=== PATIENT | male | born 1940 | race Caucasian/White ===

== ENCOUNTER → 2016-07-07 | Outpatient (CLI) | payer MEDICARE, BC | END | disposition home or self-care (01) | LOC: MW.CHFP 14:14 | PROVIDERS: ATTEND Emergency Medicine | DX: I48.91 Unspecified atrial fibrillation (principal); I25.118 Atherosclerotic heart disease of native coronary artery with other forms of angina pectoris; Z79.01 Long term (current) use of anticoagulants | CPT/HCPCS: 36415; 85610; G0463 ==

== ENCOUNTER → 2016-07-15 | Outpatient (CLI) | payer MEDICARE, BC | LOC: MW.CHFP 10:34 | PROVIDERS: ATTEND Emergency Medicine | DX: Z51.81 Encounter for therapeutic drug level monitoring (principal); Z79.01 Long term (current) use of anticoagulants | CPT/HCPCS: 36415; 85610 ==

== ENCOUNTER → 2016-07-29 | Outpatient (CLI) | payer MEDICARE, BC | LOC: MW.CHFP 08:00 | PROVIDERS: ATTEND Student in an Organized Health Care Education/Training Program | DX: Z51.81 Encounter for therapeutic drug level monitoring (principal); Z79.01 Long term (current) use of anticoagulants; I48.91 Unspecified atrial fibrillation | CPT/HCPCS: 85610; 99211 ==

== ENCOUNTER → 2016-08-12 | Outpatient (CLI) | payer MEDICARE, BC | LOC: MW.CHFP 08:00 | PROVIDERS: ATTEND Student in an Organized Health Care Education/Training Program | DX: Z51.81 Encounter for therapeutic drug level monitoring (principal); Z79.01 Long term (current) use of anticoagulants; I48.91 Unspecified atrial fibrillation | CPT/HCPCS: 85610; 99211 ==

== ENCOUNTER → 2016-09-11 | Outpatient (CLI) | payer MEDICARE, BC | LOC: MW.CHFP 08:00 | PROVIDERS: ATTEND Student in an Organized Health Care Education/Training Program | DX: Z51.81 Encounter for therapeutic drug level monitoring (principal); Z79.01 Long term (current) use of anticoagulants; I48.91 Unspecified atrial fibrillation | CPT/HCPCS: 85610; 99211 ==

== ENCOUNTER → 2016-10-09 | Outpatient (CLI) | payer MEDICARE, BC | LOC: MW.CHFP 08:00 | PROVIDERS: ATTEND Student in an Organized Health Care Education/Training Program | DX: Z51.81 Encounter for therapeutic drug level monitoring (principal); Z79.01 Long term (current) use of anticoagulants; I48.91 Unspecified atrial fibrillation | CPT/HCPCS: 85610; 99211 ==

== ENCOUNTER 2016-11-29 23:13 | Emergency (ER) | payer MEDICARE, BC ==
--- NOTE | 2016-11-29 23:38 | EDM.PDOC ---
ED HPI GENERAL MEDICAL PROBLEM - General Chief Complaint: Genitourinary Problem Stated Complaint: PT HAS BLADDER INFECTION Time Seen by Provider: 11/29/16 23:19 - History of Present Illness INITIAL COMMENTS - FREE TEXT/NARRATIVE: HISTORY AND PHYSICAL: History of present illness: The patient is a 76-year-old male with a history of diabetes hypertension CABG with maze procedure and hypercholesterolemia who was seen in the clinic 2 days ago for urinary symptoms and was diagnosed with UTI and placed on Bactrim. At that time he had a UA urine culture and CBC which I have reviewed--- the WBC count was 14.8 and the UA was positive for UTI, urine culture had greater than 100,000 Escherichia coli and is sensitive to the Bactrim . The patient presents tonight stating that he has had a total of a day and a half of the antibiotics but he still feeling urgency and having frequent urination with only small amounts avoids. He feels like his bladder is full but he has had no fevers chills flank pain chest pain shortness of breath and has been eating and drinking normally. He states that each time he feels the urge to go to the bathroom only a few drops will come out and this is been going on for the last 12+ hours. Review of systems: As per history of present illness and below otherwise all systems reviewed and negative. Past medical history: As per history of present illness and as reviewed below otherwise noncontributory. Surgical history: As per history of present illness and as reviewed below otherwise noncontributory. Social history: No reported history of drug or alcohol abuse. Family history: As per history of present illness and as reviewed below otherwise noncontributory. Physical exam: Gen.: Well-developed well-nourished man who is nontoxic and vital signs have been reviewed by me HEENT: Atraumatic, normocephalic, negative for conjunctival pallor or scleral icterus, mucous membranes moist, throat clear, neck supple, nontender, trachea midline. Lungs: Clear to auscultation, breath sounds equal bilaterally, chest nontender. Heart: S1S2, regular rate and rhythm no overt murmurs. Abdomen: Soft, nondistended, distended bladder is appreciated in the pelvic area and there is tenderness with palpation without rebound or guarding. Bowel sounds are slightly hypoactive. Negative for masses or hepatosplenomegaly. Negative for costovertebral tenderness. Pelvis: Stable nontender. Genitourinary: Deferred. Rectal: Deferred. Extremities: Atraumatic, negative for cords or calf pain. Neurovascular unremarkable. Neuro: Awake, alert, oriented. Cranial nerves II through XII unremarkable. Cerebellum unremarkable. Motor and sensory unremarkable throughout. Exam nonfocal. Diagnostics: CBC CMP bladder scan I will not repeat the UA and urine culture as I have reviewed the results from November 27, 2 days ago. Therapeutics: Chávez catheter will be placed as the bladder scan revealed 945 mL of urine Please note that his WBC count has normalized from the one done 2 days ago. I' ve informed the patient and the family. Total urine output was 800 mL. He will be given a leg bag for home and advised on follow-up. Impression: Acute urinary retention with UTI on therapy Definitive disposition and diagnosis as appropriate pending reevaluation and review of above. - Related Data Allergies Allergy/AdvReac Type Severity Reaction Status Date / Time No Known Allergies Allergy Verified 11/29/16 23:18 Home Meds: Home Meds Ascorbic Acid [Vitamin C] 500 mg PO DAILY 02/18/16 [History] Calcium Carb & Citrate/Vit D3 [Calcium + D3 ER Tablet] 600 mg PO DAILY 02/18/16 [History] Fish Oil/[place]-3 Fatty Acids [Fish Oil 1,000 MG] 1 tab PO DAILY 02/18/16 [ History] Glucosamine/D3/Boswellia Staci [Osteo Bi-Flex Caplet] 2 tab PO DAILY 02/18/16 [ History] Metoprolol Succinate 25 mg PO DAILY 02/18/16 [History] Multivitamin [Multivitamins] 1 tab PO DAILY 02/18/16 [History] Simvastatin [Zocor] 20 mg PO BEDTIME 02/18/16 [History] metFORMIN HCl [Metformin HCl ER] 500 mg PO DAILY 02/18/16 [History] Amiodarone HCl [Pacerone] 400 mg PO DAILY 11/30/16 [History] Aspirin 81 mg PO DAILY 11/30/16 [History] Furosemide 40 mg PO DAILY 11/30/16 [History] Melatonin 3 mg PO BEDTIME 11/30/16 [History] Potassium Chloride 20 meq PO 11/30/16 [History] Umeclidinium Brm/Vilanterol Tr [Anoro Ellipta 62.5-25 Mcg INH] 1 each IH ASDIRECTED 11/30/16 [History] Past Medical History HEENT History: Reports: Other (See Below) Other HEENT History: top and bottom dentures Cardiovascular History: Reports: Afib Respiratory History: Reports: None Other Gastrointestinal History: hemoccult pos- stool, Genitourinary History: Reports: None Other Genitourinary History: prostatitis, elevated PSA Musculoskeletal History: Reports: Fracture Other Musculoskeletal History: hx fx wrist Neurological History: Reports: None Psychiatric History: Reports: None Endocrine/Metabolic History: Reports: Diabetes, Type II Other Endocrine/Metabolic History: Pt states "pre diabetic" Hematologic History: Reports: Anemia, Blood Transfusion(s) Other Hematologic History: blood transfusion 3 weeks ago Immunologic History: Reports: None Oncologic (Cancer) History: Reports: None Dermatologic History: Reports: None - Past Surgical History Head Surgeries/Procedures: Reports: None HEENT Surgical History: Reports: Tonsillectomy Cardiovascular Surgical History: Reports: None Respiratory Surgical History: Reports: None GI Surgical History: Reports: Appendectomy Male Surgical History: Reports: None Endocrine Surgical History: Reports: None Neurological Surgical History: Reports: None Musculoskeletal Surgical History: Reports: None Oncologic Surgical History: Reports: None Social & Family History - Tobacco Use Smoking Status *Q: Former Smoker - Recreational Drug Use Recreational Drug Use: No Drug Use in Last 12 Months: No ED ROS GENERAL - Review of Systems Review Of Systems: ROS reveals no pertinent complaints other than HPI. ED EXAM, GENERAL - Physical Exam Exam: See Below (See dictation) Course - Vital Signs Last Recorded V/S: Last Vital Signs Temp 36.3 C 11/29/16 23:19 Pulse 70 11/30/16 00:24 Resp 21 H 11/30/16 00:24 BP 112/69 11/30/16 00:24 Pulse Ox 95 11/30/16 00:24 - Orders/Labs/Meds Orders: Active Orders 24 hr Category Date Time Status Insert Chávez Catheter [Insert Urinary Catheter] [OM.PC] Care 11/29/16 23:45 Ordered Q24H Urinary Catheter Assessment [RC] ASDIRECTED Care 11/29/16 23:45 Active Labs: Laboratory Tests 11/30/16 11/30/16 Range/Units 00:02 00:02 WBC 8.08 (4.0-11.0) K/uL RBC 3.77 L (4.50-5.90) M/uL Hgb 11.8 L (13.0-17.0) g/dL Hct 35.3 L (38.0-50.0) % MCV 93.6 (80.0-98.0) fL MCH 31.3 (27.0-32.0) pg MCHC 33.4 (31.0-37.0) g/dL RDW Std Deviation 53.9 (28.0-62.0) fl RDW Coeff of Gricelda 16 H (11.0-15.0) % Plt Count 149 L (150-400) K/uL MPV 10.00 (7.40-12.00) fL Neut % (Auto) 79.1 (48.0-80.0) % Lymph % (Auto) 7.7 L (16.0-40.0) % [place]ward % (Auto) 12.0 (0.0-15.0) % Eos % (Auto) 1.1 (0.0-7.0) % Baso % (Auto) 0.1 (0.0-1.5) % Neut # (Auto) 6.4 H (1.4-5.7) K/uL Lymph # (Auto) 0.6 (0.6-2.4) K/uL Woodward # (Auto) 1.0 H (0.0-0.8) K/uL Eos # (Auto) 0.1 (0.0-0.7) K/uL Baso # (Auto) 0.0 (0.0-0.1) K/uL Nucleated RBC % 0.0 /100WBC Nucleated RBCs # 0 K/uL Sodium 133 L (136-146) mmol/L Potassium 5.0 (3.5-5.1) mmol/L Chloride 103 (98-110) mmol/L Carbon Dioxide 23 (21-31) mmol/L BUN 23 (6.0-23.0) mg/dL Creatinine 1.3 (0.6-1.5) mg/dL Est Cr Clr Drug Dosing 55.49 mL/min Estimated GFR (MDRD) 53.8 ml/min Glucose 142 H (60-110) mg/dL Calcium 8.7 L (8.8-10.8) mg/dL Total Bilirubin 0.5 (0.1-1.5) mg/dL AST 59 H (5-40) IU/L ALT 41 (8-54) IU/L Alkaline Phosphatase 85 (40-150) Total Protein 7.4 (6.0-8.0) g/dL Albumin 3.4 (3.4-4.8) g/dL Globulin 4.0 H (2.0-3.5) g/dL Albumin/Globulin Ratio 0.9 L (1.3-2.8) Departure - Departure Time of Disposition: 00:46 Disposition: Home, Self-Care 01 Condition: Good Clinical Impression: Retention of urine, UTI, Urinary tract infectious disease - Discharge Information Referrals: PCP,None [Primary Care Provider] - Forms: ED Department Discharge Additional Instructions: The following information is given to patients seen in the emergency department who are being discharged to home. This information is to outline your options for follow-up care. We provide all patients seen in our emergency department with a follow-up referral. The need for follow-up, as well as the timing and circumstances, are variable depending upon the specifics of your emergency department visit. If you don't have a primary care physician on staff, we will provide you with a referral. We always advise you to contact your personal physician following an emergency department visit to inform them of the circumstance of the visit and for follow-up with them and/or the need for any referrals to a consulting specialist. The emergency department will also refer you to a specialist when appropriate. This referral assures that you have the opportunity for followup care with a specialist. All of these measure are taken in an effort to provide you with optimal care, which includes your followup. Under all circumstances we always encourage you to contact your private physician who remains a resource for coordinating your care. When calling for followup care, please make the office aware that this follow-up is from your recent emergency room visit. If for any reason you are refused follow-up, please contact the [facility] emergency department at and ask to speak to the emergency department charge nurse. [facility] Primary care- Internal Medicine and Family [facility] [id number] [facility] [address] [place] [id number] Please continue with your hydration and continue to take the antibiotics --- Bactrim ---that you're currently on until they are finished. Please call and follow-up with your provider in the clinic or our urologist in the next several days and return to ER as needed and as discussed. Your primary care physician can remove the Chávez catheter in the clinic in the next 3-5 days. Please drain the leg bag as shown. - My Orders Last 24 Hours: My Active Orders 11/29/16 23:45 Insert Chávez Catheter [Insert Urinary Catheter] [OM.PC] Q24H Urinary Catheter Assessment [RC] ASDIRECTED - Assessment/Plan Last 24 Hours: My Active Orders 11/29/16 23:45 Insert Chávez Catheter [Insert Urinary Catheter] [OM.PC] Q24H Urinary Catheter Assessment [RC] ASDIRECTED
[2016-11-30 01:03] VITALS: BP 105/61
== END 2016-11-30 01:11 | disposition home or self-care (01) ==
LOC: MW.ED 23:13
DX: N39.0 Urinary tract infection, site not specified (principal); R33.9 Retention of urine, unspecified; E11.9 Type 2 diabetes mellitus without complications; E78.00 Pure hypercholesterolemia, unspecified; I48.91 Unspecified atrial fibrillation; I10 Essential (primary) hypertension; Z79.84 Long term (current) use of oral hypoglycemic drugs; Z79.82 Long term (current) use of aspirin; Z79.899 Other long term (current) drug therapy; Z98.890 Other specified postprocedural states; Z90.49 Acquired absence of other specified parts of digestive tract; Z87.891 Personal history of nicotine dependence; Z86.2 Personal history of diseases of the blood and blood-forming organs and certain disorders involving the immune mechanism
CPT/HCPCS: 51702; 80053; 85025; 99283

== ENCOUNTER 2016-12-02 18:42 | Emergency (ER) | payer MEDICARE, BC ==
--- NOTE | 2016-12-02 19:53 | EDM.PDOC ---
ED HPI GENERAL MEDICAL PROBLEM - General Chief Complaint: Genitourinary Problem Stated Complaint: BLEEDING/CATHETER Time Seen by Provider: 12/02/16 18:59 Source of Information: Reports: Patient History Limitations: Reports: No Limitations - History of Present Illness INITIAL COMMENTS - FREE TEXT/NARRATIVE: Presents reporting that this afternoon he noticed some blood in his urinary catheter and pink to tea-colored urine in his leg bag. He denies inadvertently pulling on the catheter. The patient states that a few days ago he had the catheter placed because he had a urinary tract infection and then could not void. He has been on his antibiotics since and has not had any fever or other symptoms. He hasn't appointment tomorrow with his primary care provider to reevaluate his bladder function and infection. - Related Data Allergies Allergy/AdvReac Type Severity Reaction Status Date / Time No Known Allergies Allergy Verified 12/02/16 18:58 Home Meds: Home Meds Ascorbic Acid [Vitamin C] 500 mg PO DAILY 02/18/16 [History] Calcium Carb & Citrate/Vit D3 [Calcium + D3 ER Tablet] 600 mg PO DAILY 02/18/16 [History] Fish Oil/[place]-3 Fatty Acids [Fish Oil 1,000 MG] 1 tab PO DAILY 02/18/16 [ History] Glucosamine/D3/Boswellia Staci [Osteo Bi-Flex Caplet] 2 tab PO DAILY 02/18/16 [ History] Metoprolol Succinate 25 mg PO DAILY 02/18/16 [History] Multivitamin [Multivitamins] 1 tab PO DAILY 02/18/16 [History] Simvastatin [Zocor] 20 mg PO BEDTIME 02/18/16 [History] metFORMIN HCl [Metformin HCl ER] 500 mg PO DAILY 02/18/16 [History] Amiodarone HCl [Pacerone] 400 mg PO DAILY 11/30/16 [History] Aspirin 81 mg PO DAILY 11/30/16 [History] Furosemide 40 mg PO DAILY 11/30/16 [History] Melatonin 3 mg PO BEDTIME 11/30/16 [History] Potassium Chloride 20 meq PO 11/30/16 [History] Umeclidinium Brm/Vilanterol Tr [Anoro Ellipta 62.5-25 Mcg INH] 1 each IH ASDIRECTED 11/30/16 [History] Past Medical History - Past Health History Medical/Surgical History: Denies Medical/Surgical History HEENT History: Reports: Other (See Below) Other HEENT History: top and bottom dentures Cardiovascular History: Reports: Afib, High Cholesterol, Hypertension Other Cardiovascular History: heart surgery Respiratory History: Reports: None Other Gastrointestinal History: hemoccult pos- stool, Genitourinary History: Reports: None Other Genitourinary History: prostatitis, elevated PSA Musculoskeletal History: Reports: Fracture Other Musculoskeletal History: hx fx wrist Neurological History: Reports: None Psychiatric History: Reports: None Endocrine/Metabolic History: Reports: Diabetes, Type II Other Endocrine/Metabolic History: Pt states "pre diabetic" Hematologic History: Reports: Anemia, Blood Transfusion(s) Other Hematologic History: blood transfusion 3 weeks ago Immunologic History: Reports: None Oncologic (Cancer) History: Reports: None Dermatologic History: Reports: None - Infectious Disease History Infectious Disease History: Reports: None - Past Surgical History Head Surgeries/Procedures: Reports: None HEENT Surgical History: Reports: Tonsillectomy Cardiovascular Surgical History: Reports: None, Coronary Artery Bypass Respiratory Surgical History: Reports: None GI Surgical History: Reports: Appendectomy Male Surgical History: Reports: None Endocrine Surgical History: Reports: None Neurological Surgical History: Reports: None Musculoskeletal Surgical History: Reports: None Oncologic Surgical History: Reports: None Social & Family History - Family History Family Medical History: Noncontributory - Tobacco Use Smoking Status *Q: Never Smoker - Recreational Drug Use Recreational Drug Use: No Drug Use in Last 12 Months: No ED ROS GENERAL - Review of Systems Review Of Systems: ROS reveals no pertinent complaints other than HPI. ED EXAM, RENAL/ - Physical Exam Exam: See Below Exam Limited By: No Limitations General Appearance: Alert, No Apparent Distress Ears: Normal External Exam Nose: Normal Inspection Throat/Mouth: Normal Inspection Head: Atraumatic, Normocephalic Neck: Normal Inspection Respiratory/Chest: No Respiratory Distress, Lungs Clear, Normal Breath Sounds Cardiovascular: Normal Peripheral Pulses, Regular Rate, Rhythm, No Murmur GI/Abdominal: Soft (Male) Exam: Other (Urine draining into leg bag. Urine is clear dark pink with a few small clots.) Extremities: Normal Inspection Neurological: Alert, Oriented, Normal Cognition Psychiatric: Normal Affect Skin Exam: Warm, Dry, Intact, Normal Color, No Rash Lymphatic: No Adenopathy Course - Vital Signs Last Recorded V/S: Last Vital Signs Temp 36.6 C 12/02/16 18:59 Pulse 77 12/02/16 18:59 Resp 16 12/02/16 18:59 BP 162/79 H 12/02/16 18:59 Pulse Ox 97 12/02/16 18:59 - Re-Assessments/Exams Free Text/Narrative Re-Assessment/Exam: 12/02/16 19:53 His urinary catheter was flushed with saline. It flushed easily and all small clots were cleared and now draining pink tinged urine. Departure - Departure Time of Disposition: 19:54 Disposition: Home, Self-Care 01 Condition: Good Clinical Impression: Hematuria Qualifiers: Hematuria type: unspecified type Qualified Code(s): R31.9 - Hematuria, unspecified - Discharge Information Referrals: PCP,None [Primary Care Provider] - Angie Jones MD [Physician] - Forms: ED Department Discharge Additional Instructions: 1. Follow-up with your primary Provider tomorrow as previously scheduled 2. Do not take your aspirin tomorrow morning and ask your primary provider about continuing to take it 3. If you feel bladder fullness and there is no urine flowing into your leg bag , return to the ER for irrigation.
== END 2016-12-02 20:09 | disposition home or self-care (01) ==
LOC: MW.ED 18:42
CPT/HCPCS: 99283

== ENCOUNTER 2018-08-21 21:19 | Observation (INO) | payer MEDICARE, BC ==
[2018-08-21] MEDS ORDERED: Sodium Chloride 0.9% 10 ML Syringe FLUSH PRN (21:36)
[2018-08-21] MEDS ORDERED: Ondansetron 4 MG/2 ML SDV IVPUSH ONE (21:36)
[2018-08-21] MEDS ORDERED: Pantoprazole 40 MG Vial IVPUSH ONE (21:36)
[2018-08-21] MEDS ORDERED: Sodium Chloride 0.9% 1,000 ML IV ONE (21:36)
[2018-08-21] MEDS ORDERED: Sodium Chloride 0.9% 2.5 ML Syringe FLUSH PRN (21:36)
[2018-08-21] MEDS ORDERED: Morphine 2 MG/ML Syringe IVPUSH ONE (21:36)
--- NOTE | 2018-08-21 21:40 | EDM.PDOC ---
ED HPI GENERAL MEDICAL PROBLEM - General Chief Complaint: Abdominal Pain Stated Complaint: PT HAS FLU SYMPTOMS Time Seen by Provider: 08/21/18 21:26 - History of Present Illness INITIAL COMMENTS - FREE TEXT/NARRATIVE: HISTORY AND PHYSICAL: History of present illness: The patient is a 78-year-old male with history of hypertension non-insulin- dependent diabetes hypercholesterolemia who follows in our family practice clinic with Dr. Castro and presents with 5 days of upper abdominal pain with bloated feeling as well as nausea. He has only had one episode of vomiting and he says he's been having bowel movements but they're not as healthy as usual and today he only had a small one. His bowel movements and diarrhea and they're not black or bloody. The patient has a history of a CABG as well as an appendectomy but no other abdominal surgical history or GI history. He says he had an endoscopy and colonoscopy a few years ago which was normal. He has not been eating and drinking as much as usual but he has had normal urine output and no pain or hematuria with urination. He has no flank pain no chest pain no shortness of breath no fevers or chills and no upper respiratory symptoms with this abdominal problem. He says that he just feels a lot of pressure in his abdomen and does not describe the pain as sharp or crampy and not burning. He says is mostly in his upper abdomen but does not localize right or left and he has less discomfort in the lower abdominal area Review of systems: As per history of present illness and below otherwise all systems reviewed and negative. Past medical history: As per history of present illness and as reviewed below otherwise noncontributory. Surgical history: As per history of present illness and as reviewed below otherwise noncontributory. Social history: No reported history of drug or alcohol abuse. Family history: As per history of present illness and as reviewed below otherwise noncontributory. Physical exam: General: Well-developed well-nourished man who is nontoxic and vital signs are noted by me HEENT: Atraumatic, normocephalic, negative for conjunctival pallor or scleral icterus, mucous membranes moist, throat clear, neck supple, nontender, trachea midline. Lungs: Clear to auscultation, breath sounds equal bilaterally, chest nontender. Heart: S1S2, regular rate and rhythm no overt murmurs Abdomen: Soft, hyperactive bowel sounds and there is visible distention with diffuse tympany on percussion of the upper abdomen. There is minimal tenderness to deep palpation throughout the abdomen but the patient complains of feeling pressure when I perform this exam. There is no rebound or guarding. Negative for masses or hepatosplenomegaly. Negative for costovertebral tenderness. Pelvis: Stable nontender. Genitourinary: Deferred. Rectal: Deferred. Extremities: Atraumatic, negative for cords or calf pain. Neurovascular unremarkable. Neuro: Awake, alert, oriented. Cranial nerves II through XII unremarkable. Cerebellum unremarkable. Motor and sensory unremarkable throughout. Exam nonfocal. Diagnostics: EKG CBC CMP amylase lipase lactic acid UA with reflex H pylori CT scan of the abdomen and pelvis Therapeutics: IV monitor IV fluids Protonix Zofran and morphine Repeat blood pressure is 151/77 without any specific blood pressure intervention. We will continue to monitor Patient is resting comfortably in the ED and is not having any significant pain nausea or vomiting. He and are aware of CT scan results and need for admission to the hospital. They are agreeable. [id number]: Dr. Rowe is aware of this case and will see the patient in the morning for formal consultation 0000: Case was discussed with Dr. Ocampo who agrees with admission Impression: Small bowel obstruction Definitive disposition and diagnosis as appropriate pending reevaluation and review of above. upper abdomen Pain Score (Numeric/FACES): 8 - Related Data Allergies Allergy/AdvReac Type Severity Reaction Status Date / Time No Known Allergies Allergy Verified 08/21/18 21:32 Home Meds: Home Meds Ascorbic Acid [Vitamin C] 500 mg PO DAILY 02/18/16 [History] Calcium Carb & Citrate/Vit D3 [Calcium + D3 ER Tablet] 600 mg PO DAILY 02/18/16 [History] Fish Oil/[place]-3 Fatty Acids [Fish Oil 1,000 MG] 1 tab PO DAILY 02/18/16 [ History] Glucosamine/D3/Boswellia Staci [Osteo Bi-Flex Caplet] 1 tab PO DAILY 02/18/16 [ History] Multivitamin [Multivitamins] 1 tab PO DAILY 02/18/16 [History] Simvastatin [Zocor] 20 mg PO BEDTIME 02/18/16 [History] metFORMIN HCl [Metformin HCl ER] 1,000 mg PO DAILY 02/18/16 [History] Aspirin 81 mg PO DAILY 11/30/16 [History] Melatonin 10 mg PO BEDTIME 11/30/16 [History] Losartan [Cozaar] 1 tab PO DAILY 08/21/18 [History] Sertraline [Zoloft] 1 tab PO DAILY 08/21/18 [History] Past Medical History - Past Health History Medical/Surgical History: Denies Medical/Surgical History HEENT History: Reports: Other (See Below) Other HEENT History: top and bottom dentures Cardiovascular History: Reports: Afib, High Cholesterol, Hypertension Other Cardiovascular History: heart surgery Respiratory History: Reports: None Other Gastrointestinal History: hemoccult pos- stool, Genitourinary History: Reports: None Other Genitourinary History: prostatitis, elevated PSA Musculoskeletal History: Reports: Fracture Other Musculoskeletal History: hx fx wrist Neurological History: Reports: None Psychiatric History: Reports: None Endocrine/Metabolic History: Reports: Diabetes, Type II Other Endocrine/Metabolic History: Pt states "pre diabetic" Hematologic History: Reports: Anemia, Blood Transfusion(s) Other Hematologic History: blood transfusion 3 weeks ago Immunologic History: Reports: None Oncologic (Cancer) History: Reports: None Dermatologic History: Reports: None - Infectious Disease History Infectious Disease History: Reports: None - Past Surgical History Head Surgeries/Procedures: Reports: None HEENT Surgical History: Reports: Tonsillectomy Cardiovascular Surgical History: Reports: None, Coronary Artery Bypass Respiratory Surgical History: Reports: None GI Surgical History: Reports: Appendectomy Male Surgical History: Reports: None Endocrine Surgical History: Reports: None Neurological Surgical History: Reports: None Musculoskeletal Surgical History: Reports: None Oncologic Surgical History: Reports: None Social & Family History - Family History Family Medical History: Noncontributory ED ROS GENERAL - Review of Systems Review Of Systems: ROS reveals no pertinent complaints other than HPI. ED EXAM, GENERAL - Physical Exam Exam: See Below (See dictation) Course - Vital Signs Last Recorded V/S: Last Vital Signs Temp 36.8 C 08/21/18 23:29 Pulse 78 08/21/18 23:29 Resp 14 08/21/18 23:29 BP 137/76 08/21/18 23:29 Pulse Ox 92 L 08/21/18 23:29 - Orders/Labs/Meds Orders: Active Orders 24 hr Category Date Time Status Cardiac Monitoring [RC] . DIRECTED Care 08/21/18 21:35 Active EKG Documentation Completion [RC] STAT Care 08/21/18 21:35 Active Notify Provider Consults [RC] ASDIRECTED Care 08/21/18 23:53 Active Oxygen Therapy, ED [RC] ASDIRECTED Care 08/21/18 21:35 Active Pulse Oximetry [RC] ASDIRECTED Care 08/21/18 21:35 Active Consult to Physician [CONS] Stat Cons 08/21/18 23:53 Active Lactated Ringers [Ringers, Lactated] 1,000 ml Med 08/21/18 23:45 Active IV ASDIRECTED Sodium Chloride 0.9% [Saline Flush] Med 08/21/18 21:36 Active 10 ml FLUSH ASDIRECTED PRN Sodium Chloride 0.9% [Saline Flush] Med 08/21/18 21:36 Active 2.5 ml FLUSH ASDIRECTED PRN Saline Lock Insert [OM.PC] Stat Oth 08/21/18 21:35 Ordered Medication Orders Lactated Ringer's (Ringers, Lactated) 1,000 mls @ 125 mls/hr IV ASDIRECTED YOHAN Sodium Chloride (Saline Flush) 10 ml FLUSH ASDIRECTED PRN PRN Reason: Keep Vein Open Last Admin: 08/21/18 21:58 Dose: 10 ml Sodium Chloride (Saline Flush) 2.5 ml FLUSH ASDIRECTED PRN PRN Reason: Keep Vein Open Last Admin: 08/21/18 21:58 Dose: 2.5 ml Labs: Laboratory Tests 08/21/18 08/21/18 08/21/18 Range/Units 21:44 21:53 21:53 WBC 5.35 (4.0-11.0) K/uL RBC 4.34 L (4.50-5.90) M/uL Hgb 14.7 (13.0-17.0) g/dL Hct 41.5 (38.0-50.0) % MCV 95.6 (80.0-98.0) fL MCH 33.9 H (27.0-32.0) pg MCHC 35.4 (31.0-37.0) g/dL RDW Std Deviation 44.8 (28.0-62.0) fl RDW Coeff of [place]ricelda 13 (11.0-15.0) % Plt Count 147 L (150-400) K/uL MPV 9.40 (7.40-12.00) fL Neut % (Auto) 71.5 (48.0-80.0) % Lymph % (Auto) 17.2 (16.0-40.0) % [place] % (Auto) 9.5 (0.0-15.0) % Eos % (Auto) 0.7 (0.0-7.0) % Baso % (Auto) 1.1 (0.0-1.5) % Neut # (Auto) 3.8 (1.4-5.7) K/uL Lymph # (Auto) 0.9 (0.6-2.4) K/uL [place] # (Auto) 0.5 (0.0-0.8) K/uL Eos # (Auto) 0.0 (0.0-0.7) K/uL Baso # (Auto) 0.1 (0.0-0.1) K/uL Nucleated RBC % 0.0 /100WBC Nucleated RBCs # 0 K/uL Lactate 1.1 (0.20-2.00) mmol/L Sodium (136-148) mmol/L Potassium (3.5-5.1) mmol/L Chloride (98-107) mmol/L Carbon Dioxide (21.0-32.0) mmol/L BUN (7.0-18.0) mg/dL Creatinine (0.8-1.3) mg/dL Est Cr Clr Drug Dosing Estimated GFR (MDRD) ml/min Glucose (74-106) mg/dL Calcium (8.5-10.1) mg/dL Total Bilirubin (0.2-1.0) mg/dL AST (15-37) IU/L ALT (14-63) IU/L Alkaline Phosphatase (46-116) U/L Total Protein (6.4-8.2) g/dL Albumin (3.4-5.0) g/dL Globulin (2.6-4.0) g/dL Albumin/Globulin Ratio (0.9-1.6) Amylase (25-115) U/L Lipase (73-393) U/L Urine Color YELLOW Urine Appearance SLT CLOUDY Urine pH 6.5 (5.0-8.0) Ur Specific [place] 1.015 (1.001-1.035) Urine Protein NEGATIVE (NEGATIVE) mg/dL Urine Glucose (UA) NEGATIVE (NEGATIVE) mg/dL Urine Ketones TRACE H (NEGATIVE) mg/dL Urine Occult Blood NEGATIVE (NEGATIVE) Urine Nitrite NEGATIVE (NEGATIVE) Urine Bilirubin NEGATIVE (NEGATIVE) Urine Urobilinogen 0.2 (<2.0) EU/dL Ur Leukocyte Esterase NEGATIVE (NEGATIVE) H. pylori IgG Antibody (NEG) 08/21/18 08/21/18 Range/Units 21:53 21:53 WBC (4.0-11.0) K/uL RBC (4.50-5.90) M/uL Hgb (13.0-17.0) g/dL Hct (38.0-50.0) % MCV (80.0-98.0) fL MCH (27.0-32.0) pg MCHC (31.0-37.0) g/dL RDW Std Deviation (28.0-62.0) fl RDW Coeff of [place] (11.0-15.0) % Plt Count (150-400) K/uL MPV (7.40-12.00) fL Neut % (Auto) (48.0-80.0) % Lymph % (Auto) (16.0-40.0) % [place] % (Auto) (0.0-15.0) % Eos % (Auto) (0.0-7.0) % Baso % (Auto) (0.0-1.5) % Neut # (Auto) (1.4-5.7) K/uL Lymph # (Auto) (0.6-2.4) K/uL [place] # (Auto) (0.0-0.8) K/uL Eos # (Auto) (0.0-0.7) K/uL Baso # (Auto) (0.0-0.1) K/uL Nucleated RBC % /100WBC Nucleated RBCs # K/uL Lactate (0.20-2.00) mmol/L Sodium 139 (136-148) mmol/L Potassium 3.8 (3.5-5.1) mmol/L Chloride 101 (98-107) mmol/L Carbon Dioxide 28.7 (21.0-32.0) mmol/L BUN 20 H (7.0-18.0) mg/dL Creatinine 1.1 (0.8-1.3) mg/dL Est Cr Clr Drug Dosing TNP Estimated GFR (MDRD) > 60.0 ml/min Glucose 186 H (74-106) mg/dL Calcium 9.1 (8.5-10.1) mg/dL Total Bilirubin 0.5 (0.2-1.0) mg/dL AST 20 (15-37) IU/L ALT 25 (14-63) IU/L Alkaline Phosphatase 55 (46-116) U/L Total Protein 6.9 (6.4-8.2) g/dL Albumin 3.4 (3.4-5.0) g/dL Globulin 3.5 (2.6-4.0) g/dL Albumin/Globulin Ratio 1.0 (0.9-1.6) Amylase 47 (25-115) U/L Lipase 93 (73-393) U/L Urine Color Urine Appearance Urine pH (5.0-8.0) Ur Specific [place] (1.001-1.035) Urine Protein (NEGATIVE) mg/dL Urine Glucose (UA) (NEGATIVE) mg/dL Urine Ketones (NEGATIVE) mg/dL Urine Occult Blood (NEGATIVE) Urine Nitrite (NEGATIVE) Urine Bilirubin (NEGATIVE) Urine Urobilinogen (<2.0) EU/dL Ur Leukocyte Esterase (NEGATIVE) H. pylori IgG Antibody NEGATIVE (NEG) Meds: Medications Generic Name Dose Route Start Last Admin Trade Name Freq PRN Reason Stop Dose Admin Lactated Ringer's 1,000 mls @ 125 mls/hr 08/21/18 23:45 Ringers, Lactated IV ASDIRECTED YOHAN Sodium Chloride 10 ml 08/21/18 21:36 08/21/18 21:58 Saline Flush FLUSH 10 ml ASDIRECTED PRN Administration Keep Vein Open Sodium Chloride 2.5 ml 08/21/18 21:36 08/21/18 21:58 Saline Flush FLUSH 2.5 ml ASDIRECTED PRN Administration Keep Vein Open Discontinued Medications Generic Name Dose Route Start Last Admin Trade Name Freq PRN Reason Stop Dose Admin Sodium Chloride 1,000 mls @ 999 mls/hr 08/21/18 21:36 08/21/18 21:50 Normal Saline IV 08/21/18 22:36 999 mls/hr STAT ONE Administration Sodium Chloride Confirm 08/21/18 21:41 04/06/19 21:55 Normal Saline Administered 08/21/18 21:42 20 mls/hr Dose Administration 20 mls @ as directed .ROUTE .STK-MED ONE Iopamidol 100 ml 08/21/18 22:33 08/21/18 22:39 Isovue-370 (76%) IVPUSH 08/21/18 22:34 100 ml ONETIME ONE Administration Morphine Sulfate 2 mg 08/21/18 21:36 08/21/18 21:57 Morphine IVPUSH 08/21/18 21:37 2 mg ONETIME ONE Administration Ondansetron HCl 4 mg 08/21/18 21:36 08/21/18 21:56 Zofran IVPUSH 08/21/18 21:37 4 mg ONETIME ONE Administration Pantoprazole Sodium 80 mg 08/21/18 21:36 08/21/18 21:55 Protonix Iv IVPUSH 08/21/18 21:37 80 mg .BOLUS ONE Administration Departure - Departure Time of Disposition: 23:58 Disposition: Refer to Observation Condition: Good Clinical Impression: Small bowel obstruction - Discharge Information Referrals: PCP,None [Primary Care Provider] - Forms: ED Department Discharge - My Orders Last 24 Hours: My Active Orders 08/21/18 21:35 Cardiac Monitoring [RC] . DIRECTED EKG Documentation Completion [RC] STAT Oxygen Therapy, ED [RC] ASDIRECTED Pulse Oximetry [RC] ASDIRECTED Saline Lock Insert [OM.PC] Stat 08/21/18 21:36 Sodium Chloride 0.9% [Saline Flush] 10 ml FLUSH ASDIRECTED PRN Sodium Chloride 0.9% [Saline Flush] 2.5 ml FLUSH ASDIRECTED PRN 08/21/18 23:45 Lactated Ringers [Ringers, Lactated] 1,000 ml IV ASDIRECTED 08/21/18 23:53 Notify Provider Consults [RC] ASDIRECTED Consult to Physician [CONS] Stat - Assessment/Plan Last 24 Hours: My Active Orders 08/21/18 21:35 Cardiac Monitoring [RC] . DIRECTED EKG Documentation Completion [RC] STAT Oxygen Therapy, ED [RC] ASDIRECTED Pulse Oximetry [RC] ASDIRECTED Saline Lock Insert [OM.PC] Stat 08/21/18 21:36 Sodium Chloride 0.9% [Saline Flush] 10 ml FLUSH ASDIRECTED PRN Sodium Chloride 0.9% [Saline Flush] 2.5 ml FLUSH ASDIRECTED PRN 08/21/18 23:45 Lactated Ringers [Ringers, Lactated] 1,000 ml IV ASDIRECTED 08/21/18 23:53 Notify Provider Consults [RC] ASDIRECTED Consult to Physician [CONS] Stat
[2018-08-21] MEDS ORDERED: Sodium Chloride 0.9% 20 ML ONE (21:41)
[2018-08-21 22:20] LABS: CHLORIDE,CL 101 mmol/L (98-107); SODIUM,NA 139 mmol/L (136-148)
[2018-08-21] MEDS ORDERED: Iopamidol 755 Mg/ML 100 ML Bottle IVPUSH ONE (22:33)
--- NOTE | 2018-08-21 23:30 | CT ---
HISTORY: Abdominal pain. TECHNIQUE: CT abdomen and pelvis with IV contrast. COMPARISON: None. FINDINGS: Abdomen: No liver lesions. Cholelithiasis. No bile duct dilation. No pancreatic mass or pancreatic duct dilation. No spleen lesions. Spleen is normal size. No adrenal nodules. Kidneys enhance symmetrically. No renal mass. No hydronephrosis. Multiple dilated loops of small bowel with decompressed ileum. Small bowel is dilated up to 5 cm. Duodenum and proximal jejunum are not dilated. Some peripheral gas within the jejunum without definite pneumatosis. No mesenteric venous or portal venous gas. No free intraperitoneal gas. Colon is not dilated. Colonic diverticulosis. Small amount of free fluid in the abdomen. No lymphadenopathy. Moderate atherosclerosis. No abdominal aortic aneurysm. Pelvis: Large right inguinal hernia contains fat and fluid. Small portion of the bladder projects into the proximal aspect of the hernia. Prostate is enlarged. No lymphadenopathy. Musculoskeletal: Degenerative changes of the spine, sacroiliac joints, and hip joints. Compression deformity of T12 vertebral body, likely subacute or chronic. Lower chest: Atelectasis or scarring in both lung bases. Mitral anulus calcifications. Coronary artery calcifications. IMPRESSION: 1. High-grade small bowel obstruction with transition point likely in the distal small bowel in the left lower quadrant. 2. Small amount of free fluid. No fluid collection. No free intraperitoneal gas. 3. Large right inguinal hernia containing fat and fluid. Portion of the bladder projects into the proximal aspect of the hernia. 4. Cholelithiasis. 5. T12 vertebral compression deformity, likely subacute or chronic. Please note that all CT scans at this facility use dose modulation, iterative reconstruction, and/or weight-based dosing when appropriate to reduce radiation dose to as low as reasonably achievable. Dictated by Charanjit Cody MD @ Aug 21 2018 11:14PM Signed by Dr. Charanjit Cody @ Aug 21 2018 11:28PM
[2018-08-22] MEDS: Lactated Ringers 1,000 ML IV SCH ×3 (00:10→16:42)
[2018-08-22] MEDS ORDERED: Morphine 4 MG/ML Syringe IVPUSH PRN (00:56)
[2018-08-22] MEDS ORDERED: Ondansetron 4 MG/2 ML SDV IVPUSH PRN (00:57)
[2018-08-22] MEDS: Insulin Aspart 100 Units/ML 3 ML Pen SUBCUT SCH ×4 (02:20→21:19)
--- NOTE | 2018-08-22 10:20 | PCM.HP ---
H&P History of Present Illness - General Date of Service: 08/22/18 Admit Problem/Dx: Admission Diagnosis/Problem Admission Diagnosis/Problem Intestinal obstruction - History of Present Illness Initial Comments - Free Text/Narative: 78 yo male with pmh of CAD, s/p CABG, HTN, DM who presents with five day history of nausea and vomiting, abdominal distentions and pain. He reports feeling very bloated. He was evaluated in the ED with CT scan which reports high grade obstruction in the distal small bowel. Patient reported feeling better once being seen in the ED with no nasuea or abdominal pain noted. He reports that he has been passing gas and having regular stools. He denies any fevers, or blood in his stool. upper abdomen Pain Score (Numeric/FACES): 0 - Related Data Allergies/Adverse Reactions: Allergies Allergy/AdvReac Type Severity Reaction Status Date / Time No Known Allergies Allergy Verified 08/21/18 21:32 Home Medications: Home Meds Ascorbic Acid [Vitamin C] 500 mg PO DAILY 02/18/16 [History] Calcium Carb & Citrate/Vit D3 [Calcium + D3 ER Tablet] 600 mg PO DAILY 02/18/16 [History] Fish Oil/[place]-3 Fatty Acids [Fish Oil 1,000 MG] 1 tab PO DAILY 02/18/16 [ History] Glucosamine/D3/Boswellia Staci [Osteo Bi-Flex Caplet] 1 tab PO DAILY 02/18/16 [ History] Multivitamin [Multivitamins] 1 tab PO DAILY 02/18/16 [History] Simvastatin [Zocor] 20 mg PO BEDTIME 02/18/16 [History] metFORMIN HCl [Metformin HCl ER] 1,000 mg PO DAILY 02/18/16 [History] Aspirin 81 mg PO DAILY 11/30/16 [History] Melatonin 10 mg PO BEDTIME 11/30/16 [History] Losartan [Cozaar] 1 tab PO DAILY 08/21/18 [History] Sertraline [Zoloft] 1 tab PO DAILY 08/21/18 [History] Past Medical History - Past Health History Medical/Surgical History: Denies Medical/Surgical History HEENT History: Reports: Other (See Below) Other HEENT History: top and bottom dentures Cardiovascular History: Reports: Afib, High Cholesterol, Hypertension Other Cardiovascular History: heart surgery Respiratory History: Reports: None Other Gastrointestinal History: hemoccult pos- stool, Genitourinary History: Reports: None Other Genitourinary History: prostatitis, elevated PSA Musculoskeletal History: Reports: Fracture Other Musculoskeletal History: hx fx wrist Neurological History: Reports: None Psychiatric History: Reports: None Endocrine/Metabolic History: Reports: Diabetes, Type II Other Endocrine/Metabolic History: Pt states "pre diabetic" Hematologic History: Reports: Anemia, Blood Transfusion(s) Other Hematologic History: blood transfusion 3 years ago Immunologic History: Reports: None Oncologic (Cancer) History: Reports: None Dermatologic History: Reports: None - Infectious Disease History Infectious Disease History: Reports: None - Past Surgical History Head Surgeries/Procedures: Reports: None HEENT Surgical History: Reports: Tonsillectomy Cardiovascular Surgical History: Reports: Coronary Artery Bypass Respiratory Surgical History: Reports: None GI Surgical History: Reports: Appendectomy Male Surgical History: Reports: None Endocrine Surgical History: Reports: None Neurological Surgical History: Reports: None Musculoskeletal Surgical History: Reports: None Oncologic Surgical History: Reports: None Social & Family History - Family History Family Medical History: Noncontributory - Tobacco Use Smoking Status *Q: Never Smoker Second Hand Smoke Exposure: No - Caffeine Use Caffeine Use: Reports: Coffee Other Caffeine Use: drinks 6-8 cups a day - Recreational Drug Use Recreational Drug Use: No H&P Review of Systems - Review of Systems: Review Of Systems: ROS reveals no pertinent complaints other than HPI. Exam - Exam Exam: See Below - Vital Signs Vital Signs: Last Vital Signs Temp 36.6 C 08/22/18 08:00 Pulse 71 08/22/18 08:00 Resp 17 08/22/18 08:00 BP 144/86 H 08/22/18 08:00 Pulse Ox 93 L 08/22/18 08:00 Weight: 100.9 kg - Exam General: Alert, Oriented HEENT: Mucosa Moist & [place] Lungs: Clear to Auscultation, Normal Respiratory Effort Cardiovascular: Regular Rate, Regular Rhythm GI/Abdominal Exam: Soft, Non-Tender, No Distention. No: Distended, Guarding, Rigid, Rebound Extremities: No Pedal Edema Skin: Warm, Dry, Intact - Patient Data Lab Results Last 24 hrs: Laboratory Results - last 24 hr 08/21/18 08/21/18 08/21/18 Range/Units 21:44 21:53 21:53 WBC 5.35 (4.0-11.0) K/uL RBC 4.34 L (4.50-5.90) M/uL Hgb 14.7 (13.0-17.0) g/dL Hct 41.5 (38.0-50.0) % MCV 95.6 (80.0-98.0) fL MCH 33.9 H (27.0-32.0) pg MCHC 35.4 (31.0-37.0) g/dL RDW Std Deviation 44.8 (28.0-62.0) fl RDW Coeff of Gricelda 13 (11.0-15.0) % Plt Count 147 L (150-400) K/uL MPV 9.40 (7.40-12.00) fL Neut % (Auto) 71.5 (48.0-80.0) % Lymph % (Auto) 17.2 (16.0-40.0) % [place] % (Auto) 9.5 (0.0-15.0) % Eos % (Auto) 0.7 (0.0-7.0) % Baso % (Auto) 1.1 (0.0-1.5) % Neut # (Auto) 3.8 (1.4-5.7) K/uL Lymph # (Auto) 0.9 (0.6-2.4) K/uL [place] # (Auto) 0.5 (0.0-0.8) K/uL Eos # (Auto) 0.0 (0.0-0.7) K/uL Baso # (Auto) 0.1 (0.0-0.1) K/uL Nucleated RBC % 0.0 /100WBC Nucleated RBCs # 0 K/uL Lactate 1.1 (0.20-2.00) mmol/L Sodium (136-148) mmol/L Potassium (3.5-5.1) mmol/L Chloride (98-107) mmol/L Carbon Dioxide (21.0-32.0) mmol/L BUN (7.0-18.0) mg/dL Creatinine (0.8-1.3) mg/dL Est Cr Clr Drug Dosing Estimated GFR (MDRD) ml/min Glucose (74-106) mg/dL POC Glucose (60-110) mg/dL Calcium (8.5-10.1) mg/dL Total Bilirubin (0.2-1.0) mg/dL AST (15-37) IU/L ALT (14-63) IU/L Alkaline Phosphatase (46-116) U/L Total Protein (6.4-8.2) g/dL Albumin (3.4-5.0) g/dL Globulin (2.6-4.0) g/dL Albumin/Globulin Ratio (0.9-1.6) Amylase (25-115) U/L Lipase (73-393) U/L Urine Color YELLOW Urine Appearance SLT CLOUDY Urine pH 6.5 (5.0-8.0) Ur Specific [place] 1.015 (1.001-1.035) Urine Protein NEGATIVE (NEGATIVE) mg/dL Urine Glucose (UA) NEGATIVE (NEGATIVE) mg/dL Urine Ketones TRACE H (NEGATIVE) mg/dL Urine Occult Blood NEGATIVE (NEGATIVE) Urine Nitrite NEGATIVE (NEGATIVE) Urine Bilirubin NEGATIVE (NEGATIVE) Urine Urobilinogen 0.2 (<2.0) EU/dL Ur Leukocyte Esterase NEGATIVE (NEGATIVE) H. pylori IgG Antibody (NEG) 08/21/18 08/21/18 08/22/18 Range/Units 21:53 21:53 02:17 WBC (4.0-11.0) K/uL RBC (4.50-5.90) M/uL Hgb (13.0-17.0) g/dL Hct (38.0-50.0) % MCV (80.0-98.0) fL MCH (27.0-32.0) pg MCHC (31.0-37.0) g/dL RDW Std Deviation (28.0-62.0) fl RDW Coeff of [place] (11.0-15.0) % Plt Count (150-400) K/uL MPV (7.40-12.00) fL Neut % (Auto) (48.0-80.0) % Lymph % (Auto) (16.0-40.0) % [place] % (Auto) (0.0-15.0) % Eos % (Auto) (0.0-7.0) % Baso % (Auto) (0.0-1.5) % Neut # (Auto) (1.4-5.7) K/uL Lymph # (Auto) (0.6-2.4) K/uL [place] # (Auto) (0.0-0.8) K/uL Eos # (Auto) (0.0-0.7) K/uL Baso # (Auto) (0.0-0.1) K/uL Nucleated RBC % /100WBC Nucleated RBCs # K/uL Lactate (0.20-2.00) mmol/L Sodium 139 (136-148) mmol/L Potassium 3.8 (3.5-5.1) mmol/L Chloride 101 (98-107) mmol/L Carbon Dioxide 28.7 (21.0-32.0) mmol/L BUN 20 H (7.0-18.0) mg/dL Creatinine 1.1 (0.8-1.3) mg/dL Est Cr Clr Drug Dosing TNP Estimated GFR (MDRD) > 60.0 ml/min Glucose 186 H (74-106) mg/dL POC Glucose 122 H (60-110) mg/dL Calcium 9.1 (8.5-10.1) mg/dL Total Bilirubin 0.5 (0.2-1.0) mg/dL AST 20 (15-37) IU/L ALT 25 (14-63) IU/L Alkaline Phosphatase 55 (46-116) U/L Total Protein 6.9 (6.4-8.2) g/dL Albumin 3.4 (3.4-5.0) g/dL Globulin 3.5 (2.6-4.0) g/dL Albumin/Globulin Ratio 1.0 (0.9-1.6) Amylase 47 (25-115) U/L Lipase 93 (73-393) U/L Urine Color Urine Appearance Urine pH (5.0-8.0) Ur Specific [place] (1.001-1.035) Urine Protein (NEGATIVE) mg/dL Urine Glucose (UA) (NEGATIVE) mg/dL Urine Ketones (NEGATIVE) mg/dL Urine Occult Blood (NEGATIVE) Urine Nitrite (NEGATIVE) Urine Bilirubin (NEGATIVE) Urine Urobilinogen (<2.0) EU/dL Ur Leukocyte Esterase (NEGATIVE) H. pylori IgG Antibody NEGATIVE (NEG) Result Diagrams: 08/23/18 05:22 08/23/18 05:22 Problem List Initiated/Reviewed/Updated: Yes Orders Last 24hrs: Active Orders 24 hr Category Date Time Status Patient Status [ADT] Stat ADT 08/21/18 23:59 Active Accu Check [Blood Glucose Check, Bedside] [RC] Q6HR Care 08/22/18 01:12 Active Cardiac Monitoring [RC] . DIRECTED Care 08/21/18 21:35 Active EKG Documentation Completion [RC] STAT Care 08/21/18 21:35 Active Notify Provider Consults [RC] ASDIRECTED Care 08/21/18 23:53 Active Oxygen Therapy, ED [RC] ASDIRECTED Care 08/21/18 21:35 Active Pulse Oximetry [RC] ASDIRECTED Care 08/21/18 21:35 Active Consult to Physician [CONS] Stat Cons 08/21/18 23:53 Active NPO [Nothing Per Oral Diet] [DIET] Diet 08/22/18 Breakfast Active Insulin Aspart [NovoLOG] Med 08/22/18 01:15 Active See Protocol SUBCUT Q6H Lactated Ringers [Ringers, Lactated] 1,000 ml Med 08/21/18 23:45 Active IV ASDIRECTED Morphine Med 08/22/18 00:56 Active 3 mg IVPUSH Q3H PRN Ondansetron [Zofran] Med 08/22/18 00:57 Active 4 mg IVPUSH Q4H PRN Sodium Chloride 0.9% [Saline Flush] Med 08/21/18 21:36 Active 10 ml FLUSH ASDIRECTED PRN Sodium Chloride 0.9% [Saline Flush] Med 08/21/18 21:36 Active 2.5 ml FLUSH ASDIRECTED PRN Saline Lock Insert [OM.PC] Stat Oth 08/21/18 21:35 Ordered Medication Orders Lactated Ringer's (Ringers, Lactated) 1,000 mls @ 125 mls/hr IV ASDIRECTED YOHAN Last Admin: 08/22/18 08:39 Dose: 125 mls/hr Infusion: 08/22/18 08:10 Dose: 125 mls/hr Admin: 08/22/18 00:10 Dose: 125 mls/hr Insulin Aspart (Novolog) 0 unit SUBCUT Q6H YOHAN; Protocol Last Admin: 08/22/18 09:52 Dose: Not Given Admin: 08/22/18 02:20 Dose: Morphine Sulfate (Morphine) 3 mg IVPUSH Q3H PRN PRN Reason: Pain Ondansetron HCl (Zofran) 4 mg IVPUSH Q4H PRN PRN Reason: Nausea Sodium Chloride (Saline Flush) 10 ml FLUSH ASDIRECTED PRN PRN Reason: Keep Vein Open Last Admin: 08/21/18 21:58 Dose: 10 ml Sodium Chloride (Saline Flush) 2.5 ml FLUSH ASDIRECTED PRN PRN Reason: Keep Vein Open Last Admin: 08/21/18 21:58 Dose: 2.5 ml Assessment/Plan Comment:: 78 yo male admitted for small bowel obstruction. Patient is feeling better and exam is relatively benign. We will continue IV fluids and bowel rest this morning.
--- NOTE | 2018-08-22 11:49 | PCM.CONS ---
H&P History of Present Illness - General Date of Service: 08/22/18 Admit Problem/Dx: Admission Diagnosis/Problem Admission Diagnosis/Problem Intestinal obstruction Source of Information: Patient, Family History Limitations: Reports: No Limitations. Denies: Altered Mental Status - History of Present Illness Initial Comments - Free Text/Narative: 78-year-old gentleman who presented to the emergency room last evening with a 4 to five-day history of intermittent abdominal distention. He has had some mild nausea and vomiting. States he has been passing as much gas as usual. Bowel movements have been less frequent and diarrheal in nature. No bleeding. He has never had anything like this in the past. His only abdominal surgery as a remote history of an appendectomy. Duration of Symptoms: Reports: Day(s): Location: Reports: Abdomen Quality: Reports: Pressure Severity: Moderate Improves with: Reports: None Worsens with: Reports: None Context: Reports: Sick Contact Associated Symptoms: Reports: Loss of Appetite, Nausea/Vomiting. Denies: Confusion, Chest Pain, Fever/Chills, Malaise, Rash, Seizure upper abdomen Pain Score (Numeric/FACES): 0 - Related Data Allergies/Adverse Reactions: Allergies Allergy/AdvReac Type Severity Reaction Status Date / Time No Known Allergies Allergy Verified 08/21/18 21:32 Home Medications: Home Meds Ascorbic Acid [Vitamin C] 500 mg PO DAILY 02/18/16 [History] Calcium Carb & Citrate/Vit D3 [Calcium + D3 ER Tablet] 600 mg PO DAILY 02/18/16 [History] Fish Oil/[place]-3 Fatty Acids [Fish Oil 1,000 MG] 1 tab PO DAILY 02/18/16 [ History] Glucosamine/D3/Boswellia Staci [Osteo Bi-Flex Caplet] 1 tab PO DAILY 02/18/16 [ History] Multivitamin [Multivitamins] 1 tab PO DAILY 02/18/16 [History] Simvastatin [Zocor] 20 mg PO BEDTIME 02/18/16 [History] metFORMIN HCl [Metformin HCl ER] 1,000 mg PO DAILY 02/18/16 [History] Aspirin 81 mg PO DAILY 11/30/16 [History] Melatonin 10 mg PO BEDTIME 11/30/16 [History] Losartan [Cozaar] 1 tab PO DAILY 08/21/18 [History] Sertraline [Zoloft] 1 tab PO DAILY 08/21/18 [History] Past Medical History - Past Health History Medical/Surgical History: Denies Medical/Surgical History HEENT History: Reports: Other (See Below) Other HEENT History: top and bottom dentures Cardiovascular History: Reports: Afib, High Cholesterol, Hypertension Other Cardiovascular History: heart surgery Respiratory History: Reports: None Other Gastrointestinal History: hemoccult pos- stool, Genitourinary History: Reports: None Other Genitourinary History: prostatitis, elevated PSA Musculoskeletal History: Reports: Fracture Other Musculoskeletal History: hx fx wrist Neurological History: Reports: None Psychiatric History: Reports: None Endocrine/Metabolic History: Reports: Diabetes, Type II Other Endocrine/Metabolic History: Pt states "pre diabetic" Hematologic History: Reports: Anemia, Blood Transfusion(s) Other Hematologic History: blood transfusion 3 years ago Immunologic History: Reports: None Oncologic (Cancer) History: Reports: None Dermatologic History: Reports: None - Infectious Disease History Infectious Disease History: Reports: None - Past Surgical History Head Surgeries/Procedures: Reports: None HEENT Surgical History: Reports: Tonsillectomy Cardiovascular Surgical History: Reports: Coronary Artery Bypass Respiratory Surgical History: Reports: None GI Surgical History: Reports: Appendectomy Male Surgical History: Reports: None Endocrine Surgical History: Reports: None Neurological Surgical History: Reports: None Musculoskeletal Surgical History: Reports: None Oncologic Surgical History: Reports: None Social & Family History - Family History Family Medical History: Noncontributory - Tobacco Use Smoking Status *Q: Never Smoker Second Hand Smoke Exposure: No - Caffeine Use Caffeine Use: Reports: Coffee Other Caffeine Use: drinks 6-8 cups a day - Recreational Drug Use Recreational Drug Use: No H&P Review of Systems - Review of Systems: Review Of Systems: See Below General: Reports: Decreased Appetite. Denies: Fever, Chills, Malaise, Weakness , Fatigue, Night Sweats HEENT: Denies: Dysphasia, Headaches Pulmonary: Denies: Shortness of Breath, Wheezing Cardiovascular: Denies: Chest Pain, Palpitations Gastrointestinal: Reports: Abdominal Pain, Anorexia, Diarrhea, Flatus (Limited) , Nausea, Vomiting. Denies: Black Stool, Bloody Stool, Decreased Appetite, Hematemesis, Hematochezia, Melena, Stool Incontinence Genitourinary: Denies: Dysuria, Frequency, Burning Musculoskeletal: Reports: No Symptoms Skin: Denies: Cyanosis, Jaundice, Mottled, Pallor, Diaphoresis Psychiatric: Reports: No Symptoms Neurological: Reports: No Symptoms Hematologic/Lymphatic: Reports: No Symptoms Exam - Exam Exam: See Below - Vital Signs Vital Signs: Last Vital Signs Temp 97.9 F 08/22/18 08:00 Pulse 71 08/22/18 08:00 Resp 17 08/22/18 08:00 BP 144/86 H 08/22/18 08:00 Pulse Ox 93 L 08/22/18 08:00 Weight: 222 lb 7.143 oz - Exam General: Alert, Oriented, Cooperative, Mild Distress HEENT: Conjunctiva Clear, EACs Clear, Pupils Equal, Pupils Reactive. No: Scleral Icterus Neck: Supple, Trachea Midline Lungs: Clear to Auscultation, Normal Respiratory Effort Cardiovascular: Regular Rate, Regular Rhythm, Tachycardia. No: Systolic Murmur GI/Abdominal Exam: Soft, Non-Tender, No Distention, Abnormal Bowel Sounds ( slightly hyperactive), Other (well healed right lower quadrant incision consistent with his history). No: Guarding, Rigid, Rebound (Male) Exam: Normal Inspection, Hernia (right inguinal hernia) Rectal (Males) Exam: Deferred Back Exam: Normal Inspection Extremities: Normal Inspection, Normal Range of Motion, Non-Tender Peripheral Pulses: 4+: Posterior Tibial (L), Posterior Tibial (R), Dorsalis Pedis (L), Dorsalis Pedis (R) Skin: Warm, Dry, Intact Neurological: Cranial Nerves Intact Psychiatric: Alert, Normal Affect, Normal Mood - Patient Data Lab Results Last 24 hrs: Laboratory Results - last 24 hr 08/21/18 08/21/18 08/21/18 Range/Units 21:44 21:53 21:53 WBC 5.35 (4.0-11.0) K/uL RBC 4.34 L (4.50-5.90) M/uL Hgb 14.7 (13.0-17.0) g/dL Hct 41.5 (38.0-50.0) % MCV 95.6 (80.0-98.0) fL MCH 33.9 H (27.0-32.0) pg MCHC 35.4 (31.0-37.0) g/dL RDW Std Deviation 44.8 (28.0-62.0) fl RDW Coeff of [place] 13 (11.0-15.0) % Plt Count 147 L (150-400) K/uL MPV 9.40 (7.40-12.00) fL Neut % (Auto) 71.5 (48.0-80.0) % Lymph % (Auto) 17.2 (16.0-40.0) % [place] % (Auto) 9.5 (0.0-15.0) % Eos % (Auto) 0.7 (0.0-7.0) % Baso % (Auto) 1.1 (0.0-1.5) % Neut # (Auto) 3.8 (1.4-5.7) K/uL Lymph # (Auto) 0.9 (0.6-2.4) K/uL [place] # (Auto) 0.5 (0.0-0.8) K/uL Eos # (Auto) 0.0 (0.0-0.7) K/uL Baso # (Auto) 0.1 (0.0-0.1) K/uL Nucleated RBC % 0.0 /100WBC Nucleated RBCs # 0 K/uL Lactate 1.1 (0.20-2.00) mmol/L Sodium (136-148) mmol/L Potassium (3.5-5.1) mmol/L Chloride (98-107) mmol/L Carbon Dioxide (21.0-32.0) mmol/L BUN (7.0-18.0) mg/dL Creatinine (0.8-1.3) mg/dL Est Cr Clr Drug Dosing Estimated GFR (MDRD) ml/min Glucose (74-106) mg/dL POC Glucose (60-110) mg/dL Calcium (8.5-10.1) mg/dL Total Bilirubin (0.2-1.0) mg/dL AST (15-37) IU/L ALT (14-63) IU/L Alkaline Phosphatase (46-116) U/L Total Protein (6.4-8.2) g/dL Albumin (3.4-5.0) g/dL Globulin (2.6-4.0) g/dL Albumin/Globulin Ratio (0.9-1.6) Amylase (25-115) U/L Lipase (73-393) U/L Urine Color YELLOW Urine Appearance SLT CLOUDY Urine pH 6.5 (5.0-8.0) Ur Specific [place] 1.015 (1.001-1.035) Urine Protein NEGATIVE (NEGATIVE) mg/dL Urine Glucose (UA) NEGATIVE (NEGATIVE) mg/dL Urine Ketones TRACE H (NEGATIVE) mg/dL Urine Occult Blood NEGATIVE (NEGATIVE) Urine Nitrite NEGATIVE (NEGATIVE) Urine Bilirubin NEGATIVE (NEGATIVE) Urine Urobilinogen 0.2 (<2.0) EU/dL Ur Leukocyte Esterase NEGATIVE (NEGATIVE) H. pylori IgG Antibody (NEG) 08/21/18 08/21/18 08/22/18 Range/Units 21:53 21:53 02:17 WBC (4.0-11.0) K/uL RBC (4.50-5.90) M/uL Hgb (13.0-17.0) g/dL Hct (38.0-50.0) % MCV (80.0-98.0) fL MCH (27.0-32.0) pg MCHC (31.0-37.0) g/dL RDW Std Deviation (28.0-62.0) fl RDW Coeff of [place] (11.0-15.0) % Plt Count (150-400) K/uL MPV (7.40-12.00) fL Neut % (Auto) (48.0-80.0) % Lymph % (Auto) (16.0-40.0) % [place] % (Auto) (0.0-15.0) % Eos % (Auto) (0.0-7.0) % Baso % (Auto) (0.0-1.5) % Neut # (Auto) (1.4-5.7) K/uL Lymph # (Auto) (0.6-2.4) K/uL [place] # (Auto) (0.0-0.8) K/uL Eos # (Auto) (0.0-0.7) K/uL Baso # (Auto) (0.0-0.1) K/uL Nucleated RBC % /100WBC Nucleated RBCs # K/uL Lactate (0.20-2.00) mmol/L Sodium 139 (136-148) mmol/L Potassium 3.8 (3.5-5.1) mmol/L Chloride 101 (98-107) mmol/L Carbon Dioxide 28.7 (21.0-32.0) mmol/L BUN 20 H (7.0-18.0) mg/dL Creatinine 1.1 (0.8-1.3) mg/dL Est Cr Clr Drug Dosing TNP Estimated GFR (MDRD) > 60.0 ml/min Glucose 186 H (74-106) mg/dL POC Glucose 122 H (60-110) mg/dL Calcium 9.1 (8.5-10.1) mg/dL Total Bilirubin 0.5 (0.2-1.0) mg/dL AST 20 (15-37) IU/L ALT 25 (14-63) IU/L Alkaline Phosphatase 55 (46-116) U/L Total Protein 6.9 (6.4-8.2) g/dL Albumin 3.4 (3.4-5.0) g/dL Globulin 3.5 (2.6-4.0) g/dL Albumin/Globulin Ratio 1.0 (0.9-1.6) Amylase 47 (25-115) U/L Lipase 93 (73-393) U/L Urine Color Urine Appearance Urine pH (5.0-8.0) Ur Specific [place] (1.001-1.035) Urine Protein (NEGATIVE) mg/dL Urine Glucose (UA) (NEGATIVE) mg/dL Urine Ketones (NEGATIVE) mg/dL Urine Occult Blood (NEGATIVE) Urine Nitrite (NEGATIVE) Urine Bilirubin (NEGATIVE) Urine Urobilinogen (<2.0) EU/dL Ur Leukocyte Esterase (NEGATIVE) H. pylori IgG Antibody NEGATIVE (NEG) Result Diagrams: 08/21/18 21:53 08/21/18 21:53 Consult PN Assessment/Plan Procedures: Procedures ASSAY OF FOLIC ACID SERUM (02/01/18) BLOOD CULTURE FOR BACTERIA (02/23/15) BLOOD TRANSFUSION SERVICE (02/01/16) BLOOD TYPING SEROLOGIC ABO (02/01/16) BLOOD TYPING SEROLOGIC RH(D) (02/01/16) CARDIAC REHAB/MONITOR (09/26/16) CHEST X-RAY 2VW FRONTAL&LATL (10/12/14) COLONOSCOPY AND BIOPSY (02/21/16) COMPATIBILITY TEST ANTIGLOB (02/01/16) COMPATIBILITY TEST INCUBATE (02/01/16) COMPATIBILITY TEST SPIN (02/01/16) COMPLETE CBC AUTOMATED (08/13/17) COMPLETE CBC W/AUTO DIFF WBC (02/01/18) COMPREHEN METABOLIC PANEL (12/31/16) EGD BIOPSY SINGLE/MULTIPLE (02/21/16) ELECTROCARDIOGRAM TRACING (09/22/17) EMERGENCY DEPT VISIT (12/02/16) EXTREMITY STUDY (08/04/14) GLUCOSE BLOOD TEST (02/21/16) GLYCOSYLATED HEMOGLOBIN TEST (12/31/16) HEMATOCRIT (04/22/16) HEMOGLOBIN (04/22/16) HYDRATE IV INFUSION ADD-ON (02/23/15) INSERT TEMP BLADDER CATH (11/29/16) IRON BINDING TEST (12/31/16) LIPID PANEL (12/31/16) METABOLIC PANEL TOTAL CA (02/01/16) MICROBE SUSCEPTIBLE JOSIAH (02/01/18) OFFICE/OUTPATIENT VISIT EST (02/09/18) OFFICE/OUTPATIENT VISIT EST (10/12/14) OFFICE/OUTPATIENT VISIT NEW (02/06/16) OFFICE/OUTPATIENT VISIT NEW (08/03/14) PPSV23 VACC 2 YRS+ SUBQ/IM (10/12/14) PROTHROMBIN TIME (07/15/16) PT EVALUATION (10/23/14) RBC ANTIBODY SCREEN (02/01/16) RMVL DEVITAL TIS 20 CM/< (08/14/14) ROUTINE VENIPUNCTURE (02/01/18) THER/PROPH/DIAG IV INF INIT (02/23/15) TTE W/DOPPLER COMPLETE (10/16/14) URINALYSIS AUTO W/SCOPE (02/09/18) URINE BACTERIA CULTURE (02/01/18) URINE CULTURE/COLONY COUNT (02/01/18) US EXAM ABDO BACK WALL SINGH (02/12/18) US URINE CAPACITY MEASURE (11/29/16) VITAMIN B-12 (12/31/16) WOUND(S) CARE NON-SELECTIVE (08/14/14) (1) Small bowel obstruction SNOMED Code(s): 946780011 Code(s): K56.609 - UNSP INTESTNL OBST, UNSP TO PARTIAL VERSUS COMPLETE OBST Current Visit: Yes Assessment:: Clinically, the patient currently seems to be doing well. He states he did pass a small amount of flatus. Says his abdominal distention is markedly improved. He has been walking around. Problem List Initiated/Reviewed/Updated: Yes Plan: Will keep him nothing by mouth. Increase his activity. Consider flat and upright abdomen today and daily to assess the current status of the small bowel obstruction.
[2018-08-23] MEDS: Lactated Ringers 1,000 ML IV SCH ×3 (00:45→18:41)
[2018-08-23] MEDS: Insulin Aspart 100 Units/ML 3 ML Pen SUBCUT SCH ×4 (00:49→19:55)
[2018-08-23 06:20] LABS: CHLORIDE,CL 108 mmol/L (98-107); SODIUM,NA 143 mmol/L (136-148)
--- NOTE | 2018-08-23 07:33 | PCM.PN ---
- General Info Date of Service: 08/23/18 - Review of Systems Systems Review Comment:: patient denies any abdominal pain but reports abdominal distention. - Patient Data Vitals - Most Recent: Last Vital Signs Temp 36.3 C 08/23/18 04:00 Pulse 68 08/23/18 04:00 Resp 17 08/23/18 04:00 BP 133/77 08/23/18 04:00 Pulse Ox 94 L 08/23/18 04:00 Weight - Most Recent: 100.9 kg I&O - Last 24 Hours: Intake & Output 08/22/18 08/23/18 08/23/18 22:59 06:59 14:59 Intake Total 958 999 Output Total 425 960 Balance 533 39 Lab Results Last 24 Hours: Laboratory Results - last 24 hr 08/22/18 08/22/18 08/22/18 Range/Units 07:13 12:57 18:50 WBC (4.0-11.0) K/uL RBC (4.50-5.90) M/uL Hgb (13.0-17.0) g/dL Hct (38.0-50.0) % MCV (80.0-98.0) fL MCH (27.0-32.0) pg MCHC (31.0-37.0) g/dL RDW Std Deviation (28.0-62.0) fl RDW Coeff of Gricelda (11.0-15.0) % Plt Count (150-400) K/uL MPV (7.40-12.00) fL Add Manual Diff Neutrophils % (Manual) (48.0-80.0) % Band Neutrophils % % Lymphocytes % (Manual) (16.0-40.0) % Monocytes % (Manual) (0.0-15.0) % Eosinophils % (Manual) (0.0-7.0) % Metamyelocytes % % Nucleated RBC % /100WBC Absolute Seg Neuts (1.4-5.7) Band Neutrophils # Lymphocytes # (Manual) (0.6-2.4) Monocytes # (Manual) (0.0-0.8) Eosinophils # (Manual) (0.0-0.7) Absolute Metamyelocyte Nucleated RBCs # K/uL Sodium (136-148) mmol/L Potassium (3.5-5.1) mmol/L Chloride (98-107) mmol/L Carbon Dioxide (21.0-32.0) mmol/L BUN (7.0-18.0) mg/dL Creatinine (0.8-1.3) mg/dL Est Cr Clr Drug Dosing mL/min Estimated GFR (MDRD) ml/min Glucose (74-106) mg/dL POC Glucose 105 95 102 (60-110) mg/dL Calcium (8.5-10.1) mg/dL 08/23/18 08/23/18 08/23/18 Range/Units 00:49 05:22 05:22 WBC 6.20 (4.0-11.0) K/uL RBC 3.84 L (4.50-5.90) M/uL Hgb 12.7 L (13.0-17.0) g/dL Hct 37.4 L (38.0-50.0) % MCV 97.4 (80.0-98.0) fL MCH 33.1 H (27.0-32.0) pg MCHC 34.0 (31.0-37.0) g/dL RDW Std Deviation 46.5 (28.0-62.0) fl RDW Coeff of Gricelda 13 (11.0-15.0) % Plt Count 156 (150-400) K/uL MPV 9.50 (7.40-12.00) fL Add Manual Diff YES Neutrophils % (Manual) 59 (48.0-80.0) % Band Neutrophils % 1 % Lymphocytes % (Manual) 25 (16.0-40.0) % Monocytes % (Manual) 7 (0.0-15.0) % Eosinophils % (Manual) 4 (0.0-7.0) % Metamyelocytes % 4 % Nucleated RBC % 0.0 /100WBC Absolute Seg Neuts 3.7 (1.4-5.7) Band Neutrophils # 0.1 Lymphocytes # (Manual) 1.6 (0.6-2.4) Monocytes # (Manual) 0.4 (0.0-0.8) Eosinophils # (Manual) 0.2 (0.0-0.7) Absolute Metamyelocyte 0.2 Nucleated RBCs # 0 K/uL Sodium 143 (136-148) mmol/L Potassium 4.6 (3.5-5.1) mmol/L Chloride 108 H (98-107) mmol/L Carbon Dioxide 29.1 (21.0-32.0) mmol/L BUN 19 H (7.0-18.0) mg/dL Creatinine 1.0 (0.8-1.3) mg/dL Est Cr Clr Drug Dosing 69.91 mL/min Estimated GFR (MDRD) > 60.0 ml/min Glucose 91 (74-106) mg/dL POC Glucose 100 (60-110) mg/dL Calcium 8.5 (8.5-10.1) mg/dL Med Orders - Current: Current Medications Lactated Ringer's (Ringers, Lactated) 1,000 mls @ 125 mls/hr IV ASDIRECTED [facility] Last Admin: 08/23/18 00:45 Dose: 125 mls/hr Insulin Aspart (Novolog) 0 unit SUBCUT Q6H [facility]; Protocol Last Admin: 08/23/18 06:37 Dose: Not Given Morphine Sulfate (Morphine) 3 mg IVPUSH Q3H PRN PRN Reason: Pain Ondansetron HCl (Zofran) 4 mg IVPUSH Q4H PRN PRN Reason: Nausea Sodium Chloride (Saline Flush) 10 ml FLUSH ASDIRECTED PRN PRN Reason: Keep Vein Open Last Admin: 08/21/18 21:58 Dose: 10 ml Sodium Chloride (Saline Flush) 2.5 ml FLUSH ASDIRECTED PRN PRN Reason: Keep Vein Open Last Admin: 08/21/18 21:58 Dose: 2.5 ml Discontinued Medications Sodium Chloride (Normal Saline) 1,000 mls @ 999 mls/hr IV STAT ONE Stop: 08/21/18 22:36 Last Admin: 08/21/18 21:50 Dose: 999 mls/hr Sodium Chloride (Normal Saline) Confirm Administered Dose 20 mls @ as directed .ROUTE .STK-MED ONE Stop: 08/21/18 21:42 Last Admin: 08/21/18 21:55 Dose: 20 mls/hr Iopamidol (Isovue-370 (76%)) 100 ml IVPUSH ONETIME ONE Stop: 08/21/18 22:34 Last Admin: 08/21/18 22:39 Dose: 100 ml Morphine Sulfate (Morphine) 2 mg IVPUSH ONETIME ONE Stop: 08/21/18 21:37 Last Admin: 08/21/18 21:57 Dose: 2 mg Ondansetron HCl (Zofran) 4 mg IVPUSH ONETIME ONE Stop: 08/21/18 21:37 Last Admin: 08/21/18 21:56 Dose: 4 mg Pantoprazole Sodium (Protonix Iv) 80 mg IVPUSH .BOLUS ONE Stop: 08/21/18 21:37 Last Admin: 08/21/18 21:55 Dose: 80 mg - Exam General: Alert, Oriented Neck: Supple Lungs: Clear to Auscultation, Normal Respiratory Effort Cardiovascular: Regular Rate, Regular Rhythm GI/Abdominal Exam: Normal Bowel Sounds, Soft, Non-Tender, Distended Extremities: Non-Tender, No Pedal Edema Skin: Warm, Dry, Intact - Problem List Review Problem List Initiated/Reviewed/Updated: Yes - My Orders Last 24 Hours: My Active Orders 08/22/18 19:03 Oxygen Therapy [RC] PRN Up ad Henny [RC] ASDIRECTED VTE/DVT Education [RC] PER UNIT ROUTINE Vital Signs [RC] Q4H Resuscitation Status Routine 08/22/18 19:04 Antiembolic Devices [RC] PER UNIT ROUTINE Sequential Compression Device [OM.PC] Per Unit Routine 08/23/18 05:11 Abdomen 2V AP Flat Upright [CR] AM - Plan Plan:: 78 yo male admitted for small bowel obstruction. There is some distention on exam but patient denies pain. X-rays fo abdomen are pending will await results. Currently patient is NPO. Dr. Rowe has been consulted and appreciate recommendations.
--- NOTE | 2018-08-23 11:37 | CR ---
EXAMINATION: Abdomen HISTORY: Bowel obstruction COMPARISON: CT dated 08/21/2018 TECHNIQUE: AP and upright views obtained of the abdomen. FINDINGS: There is no free air under the diaphragm. Again noted are prominently dilated loops of small bowel measuring up to 6.5 cm. Minimal gas noted within the colon and rectum. No nasogastric tube identified. No abnormal calcifications project over the kidneys. Atelectasis and/or infiltrate is noted within the left lung base. Median sternotomy wires are noted. No suspicious osseous abnormalities identified. IMPRESSION: 1. Severely dilated loops of small bowel again noted consistent with a mechanical bowel obstruction without significant change.
--- NOTE | 2018-08-23 13:44 | PCM.CONSN ---
- General Info Date of Service: 08/23/18 Subjective Update: Patient states he feels about the same. Minimal discomfort. No flatus or BM. No N/V, fever or chills. Functional Status: Reports: Pain Controlled, Ambulating, Urinating - Review of Systems General: Denies: Fever, Weakness, Fatigue, Malaise, Chills HEENT: Reports: No Symptoms Pulmonary: Denies: Shortness of Breath, Pleuritic Chest Pain Cardiovascular: Denies: Chest Pain Gastrointestinal: Reports: Abdominal Pain (mild). Denies: Diarrhea, Difficulty Swallowing, Flatus, Hematochezia, Melena, Nausea, Vomiting Genitourinary: Reports: No Symptoms Musculoskeletal: Reports: No Symptoms Skin: Reports: No Symptoms Neurological: Reports: No Symptoms Psychiatric: Reports: No Symptoms - Patient Data Vitals - Most Recent: Last Vital Signs Temp 98.4 F 08/23/18 11:39 Pulse 71 08/23/18 11:39 Resp 18 08/23/18 11:39 BP 152/74 H 08/23/18 11:39 Pulse Ox 95 08/23/18 08:00 Weight - Most Recent: 222 lb 7.143 oz I&O - Last 24 Hours: Intake & Output 08/23/18 08/23/18 08/23/18 03:59 11:59 19:59 Intake Total 999 0 Output Total 960 Balance 999 -960 Imaging Impressions - Last 24 Hours: Abdominal films reviewed. Small bowel dilated to 6 cms. No pneumoperitoneum. Lab Results Last 24 Hours: Laboratory Results - last 24 hr 08/22/18 08/23/18 08/23/18 Range/Units 18:50 00:49 05:22 WBC 6.20 (4.0-11.0) K/uL RBC 3.84 L (4.50-5.90) M/uL Hgb 12.7 L (13.0-17.0) g/dL Hct 37.4 L (38.0-50.0) % MCV 97.4 (80.0-98.0) fL MCH 33.1 H (27.0-32.0) pg MCHC 34.0 (31.0-37.0) g/dL RDW Std Deviation 46.5 (28.0-62.0) fl RDW Coeff of Gricelda 13 (11.0-15.0) % Plt Count 156 (150-400) K/uL MPV 9.50 (7.40-12.00) fL Add Manual Diff YES Neutrophils % (Manual) 59 (48.0-80.0) % Band Neutrophils % 1 % Lymphocytes % (Manual) 25 (16.0-40.0) % Monocytes % (Manual) 7 (0.0-15.0) % Eosinophils % (Manual) 4 (0.0-7.0) % Metamyelocytes % 4 % Nucleated RBC % 0.0 /100WBC Absolute Seg Neuts 3.7 (1.4-5.7) Band Neutrophils # 0.1 Lymphocytes # (Manual) 1.6 (0.6-2.4) Monocytes # (Manual) 0.4 (0.0-0.8) Eosinophils # (Manual) 0.2 (0.0-0.7) Absolute Metamyelocyte 0.2 Nucleated RBCs # 0 K/uL Sodium (136-148) mmol/L Potassium (3.5-5.1) mmol/L Chloride (98-107) mmol/L Carbon Dioxide (21.0-32.0) mmol/L BUN (7.0-18.0) mg/dL Creatinine (0.8-1.3) mg/dL Est Cr Clr Drug Dosing mL/min Estimated GFR (MDRD) ml/min Glucose (74-106) mg/dL POC Glucose 102 100 (60-110) mg/dL Calcium (8.5-10.1) mg/dL 08/23/18 08/23/18 08/23/18 Range/Units 05:22 06:34 11:37 WBC (4.0-11.0) K/uL RBC (4.50-5.90) M/uL Hgb (13.0-17.0) g/dL Hct (38.0-50.0) % MCV (80.0-98.0) fL MCH (27.0-32.0) pg MCHC (31.0-37.0) g/dL RDW Std Deviation (28.0-62.0) fl RDW Coeff of [place] (11.0-15.0) % Plt Count (150-400) K/uL MPV (7.40-12.00) fL Add Manual Diff Neutrophils % (Manual) (48.0-80.0) % Band Neutrophils % % Lymphocytes % (Manual) (16.0-40.0) % Monocytes % (Manual) (0.0-15.0) % Eosinophils % (Manual) (0.0-7.0) % Metamyelocytes % % Nucleated RBC % /100WBC Absolute Seg Neuts (1.4-5.7) Band Neutrophils # Lymphocytes # (Manual) (0.6-2.4) Monocytes # (Manual) (0.0-0.8) Eosinophils # (Manual) (0.0-0.7) Absolute Metamyelocyte Nucleated RBCs # K/uL Sodium 143 (136-148) mmol/L Potassium 4.6 (3.5-5.1) mmol/L Chloride 108 H (98-107) mmol/L Carbon Dioxide 29.1 (21.0-32.0) mmol/L BUN 19 H (7.0-18.0) mg/dL Creatinine 1.0 (0.8-1.3) mg/dL Est Cr Clr Drug Dosing 69.91 mL/min Estimated GFR (MDRD) > 60.0 ml/min Glucose 91 (74-106) mg/dL POC Glucose 91 81 (60-110) mg/dL Calcium 8.5 (8.5-10.1) mg/dL Med Orders - Current: Current Medications Lactated Ringer's (Ringers, Lactated) 1,000 mls @ 125 mls/hr IV ASDIRECTED [facility] Last Admin: 08/23/18 09:48 Dose: 125 mls/hr Insulin Aspart (Novolog) 0 unit SUBCUT Q6H [facility]; Protocol Last Admin: 08/23/18 06:37 Dose: Not Given Morphine Sulfate (Morphine) 3 mg IVPUSH Q3H PRN PRN Reason: Pain Ondansetron HCl (Zofran) 4 mg IVPUSH Q4H PRN PRN Reason: Nausea Sodium Chloride (Saline Flush) 10 ml FLUSH ASDIRECTED PRN PRN Reason: Keep Vein Open Last Admin: 08/21/18 21:58 Dose: 10 ml Sodium Chloride (Saline Flush) 2.5 ml FLUSH ASDIRECTED PRN PRN Reason: Keep Vein Open Last Admin: 08/21/18 21:58 Dose: 2.5 ml Discontinued Medications Sodium Chloride (Normal Saline) 1,000 mls @ 999 mls/hr IV STAT ONE Stop: 08/21/18 22:36 Last Admin: 08/21/18 21:50 Dose: 999 mls/hr Sodium Chloride (Normal Saline) Confirm Administered Dose 20 mls @ as directed .ROUTE .STK-MED ONE Stop: 08/21/18 21:42 Last Admin: 08/21/18 21:55 Dose: 20 mls/hr Iopamidol (Isovue-370 (76%)) 100 ml IVPUSH ONETIME ONE Stop: 08/21/18 22:34 Last Admin: 08/21/18 22:39 Dose: 100 ml Morphine Sulfate (Morphine) 2 mg IVPUSH ONETIME ONE Stop: 08/21/18 21:37 Last Admin: 08/21/18 21:57 Dose: 2 mg Ondansetron HCl (Zofran) 4 mg IVPUSH ONETIME ONE Stop: 08/21/18 21:37 Last Admin: 08/21/18 21:56 Dose: 4 mg Pantoprazole Sodium (Protonix Iv) 80 mg IVPUSH .BOLUS ONE Stop: 08/21/18 21:37 Last Admin: 08/21/18 21:55 Dose: 80 mg - Exam General: Alert, Oriented, Cooperative, No Acute Distress HEENT: Pupils Equal, Pupils Reactive, EOMI. No: Scleral Icterus Neck: Supple Lungs: Clear to Auscultation, Normal Respiratory Effort Cardiovascular: Regular Rate, Regular Rhythm, No Murmurs. No: Tachycardia GI/Abdominal Exam: Soft, Non-Tender, No Distention, Abnormal Bowel Sounds ( hypoactive BS. No tinkles or rushes.). No: Guarding, Rigid, Rebound (Male) Exam: No Hernia Back Exam: Normal Inspection Extremities: Normal Inspection, Normal Range of Motion, Non-Tender, No Pedal Edema, Normal Capillary Refill Peripheral Pulses: 4+: Posterior Tibial (L), Posterior Tibial (R), Dorsalis Pedis (L), Dorsalis Pedis (R) Skin: Warm, Dry, Intact Neurological: No New Focal Deficit Psy/Mental Status: Alert, Normal Affect, Normal Mood Consult PN Assessment/Plan Procedures: Procedures ASSAY OF FOLIC ACID SERUM (02/01/18) BLOOD CULTURE FOR BACTERIA (02/23/15) BLOOD TRANSFUSION SERVICE (02/01/16) BLOOD TYPING SEROLOGIC ABO (02/01/16) BLOOD TYPING SEROLOGIC RH(D) (02/01/16) CARDIAC REHAB/MONITOR (09/26/16) CHEST X-RAY 2VW FRONTAL&LATL (10/12/14) COLONOSCOPY AND BIOPSY (02/21/16) COMPATIBILITY TEST ANTIGLOB (02/01/16) COMPATIBILITY TEST INCUBATE (02/01/16) COMPATIBILITY TEST SPIN (02/01/16) COMPLETE CBC AUTOMATED (08/13/17) COMPLETE CBC W/AUTO DIFF WBC (02/01/18) COMPREHEN METABOLIC PANEL (12/31/16) EGD BIOPSY SINGLE/MULTIPLE (02/21/16) ELECTROCARDIOGRAM TRACING (09/22/17) EMERGENCY DEPT VISIT (12/02/16) EXTREMITY STUDY (08/04/14) GLUCOSE BLOOD TEST (02/21/16) GLYCOSYLATED HEMOGLOBIN TEST (12/31/16) HEMATOCRIT (04/22/16) HEMOGLOBIN (04/22/16) HYDRATE IV INFUSION ADD-ON (02/23/15) INSERT TEMP BLADDER CATH (11/29/16) IRON BINDING TEST (12/31/16) LIPID PANEL (12/31/16) METABOLIC PANEL TOTAL CA (02/01/16) MICROBE SUSCEPTIBLE JOSIAH (02/01/18) OFFICE/OUTPATIENT VISIT EST (02/09/18) OFFICE/OUTPATIENT VISIT EST (10/12/14) OFFICE/OUTPATIENT VISIT NEW (02/06/16) OFFICE/OUTPATIENT VISIT NEW (08/03/14) PPSV23 VACC 2 YRS+ SUBQ/IM (10/12/14) PROTHROMBIN TIME (07/15/16) PT EVALUATION (10/23/14) RBC ANTIBODY SCREEN (02/01/16) RMVL DEVITAL TIS 20 CM/< (08/14/14) ROUTINE VENIPUNCTURE (02/01/18) THER/PROPH/DIAG IV INF INIT (02/23/15) TTE W/DOPPLER COMPLETE (10/16/14) URINALYSIS AUTO W/SCOPE (02/09/18) URINE BACTERIA CULTURE (02/01/18) URINE CULTURE/COLONY COUNT (02/01/18) US EXAM ABDO BACK WALL SINGH (02/12/18) US URINE CAPACITY MEASURE (11/29/16) VITAMIN B-12 (12/31/16) WOUND(S) CARE NON-SELECTIVE (08/14/14) (1) Small bowel obstruction SNOMED Code(s): 506388967 Code(s): K56.609 - UNSP INTESTNL OBST, UNSP TO PARTIAL VERSUS COMPLETE OBST Current Visit: Yes Problem List Initiated/Reviewed/Updated: Yes Plan: Patient is about the same. Still no flatus or BM. Abdomen is soft, flat and nontender. Bowel sounds hypoactive to my exam. Would consider a gastrografin swallow to see if any contrast goes through the small intestine. This may have a cathartic effect. If contrast does not traverse the small bowel patient will require laparotomy.
[2018-08-24] MEDS: Insulin Aspart 100 Units/ML 3 ML Pen SUBCUT SCH ×4 (00:17→18:50)
[2018-08-24] MEDS: Lactated Ringers 1,000 ML IV SCH (03:13)
[2018-08-24] MEDS: Dextrose 5%-0.45% NaCl 1,000 ML IV SCH ×2 (06:08→16:01)
[2018-08-24 06:09] LABS: CHLORIDE,CL 106 mmol/L (98-107); SODIUM,NA 143 mmol/L (136-148)
--- NOTE | 2018-08-24 07:13 | CR ---
INDICATION: Small bowel obstruction; followup. Comparison: CT abdomen and pelvis August 21, 2018; radiographic examination of the abdomen August 23, 2018. TECHNIQUE: Three-view study of the abdomen including upright. FINDINGS: dilatation of the entire small bowel with fluid levels indicating mechanical small bowel obstruction until proven otherwise. No interval change identified. No pneumoperitoneum. Status post median sternotomy. IMPRESSION: Persistent small bowel obstruction. Dictated by Sierra Taylor MD @ Aug 24 2018 7:09AM Signed by Dr. Sierra Taylor @ Aug 24 2018 7:12AM
--- NOTE | 2018-08-24 09:34 | PCM.CONSN ---
- General Info Date of Service: 08/24/18 Admission Dx/Problem (Free Text): SBO Subjective Update: Patient states he feels about the same. No N/V. No flatus or BM. Rates pain a "3". Functional Status: Reports: Pain Controlled, Ambulating, Urinating - Review of Systems General: Denies: Fever, Weakness, Fatigue, Malaise, Chills HEENT: Reports: No Symptoms Pulmonary: Denies: Shortness of Breath, Pleuritic Chest Pain, Cough Cardiovascular: Denies: Chest Pain, Palpitations Gastrointestinal: Reports: Abdominal Pain (rates pain a "3"). Denies: Constipation, Diarrhea, Difficulty Swallowing, Flatus, Hematochezia, Melena, Nausea, Vomiting Genitourinary: Reports: No Symptoms Musculoskeletal: Reports: No Symptoms Skin: Reports: No Symptoms Neurological: Reports: No Symptoms Psychiatric: Reports: No Symptoms - Patient Data Vitals - Most Recent: Last Vital Signs Temp 98.9 F 08/24/18 08:00 Pulse 69 08/24/18 08:00 Resp 16 08/24/18 08:00 BP 147/78 H 08/24/18 08:00 Pulse Ox 96 08/24/18 08:00 Weight - Most Recent: 222 lb 7.143 oz I&O - Last 24 Hours: Intake & Output 08/23/18 08/24/18 08/24/18 19:59 03:59 11:59 Intake Total 1460 1140 Output Total 545 300 Balance 915 840 Lab Results Last 24 Hours: Laboratory Results - last 24 hr 08/23/18 08/23/18 08/24/18 Range/Units 11:37 19:53 00:09 WBC (4.0-11.0) K/uL RBC (4.50-5.90) M/uL Hgb (13.0-17.0) g/dL Hct (38.0-50.0) % MCV (80.0-98.0) fL MCH (27.0-32.0) pg MCHC (31.0-37.0) g/dL RDW Std Deviation (28.0-62.0) fl RDW Coeff of Gricelda (11.0-15.0) % Plt Count (150-400) K/uL MPV (7.40-12.00) fL Neut % (Auto) (48.0-80.0) % Lymph % (Auto) (16.0-40.0) % [place] % (Auto) (0.0-15.0) % Eos % (Auto) (0.0-7.0) % Baso % (Auto) (0.0-1.5) % Neut # (Auto) (1.4-5.7) K/uL Lymph # (Auto) (0.6-2.4) K/uL [place] # (Auto) (0.0-0.8) K/uL Eos # (Auto) (0.0-0.7) K/uL Baso # (Auto) (0.0-0.1) K/uL Nucleated RBC % /100WBC Nucleated RBCs # K/uL Sodium (136-148) mmol/L Potassium (3.5-5.1) mmol/L Chloride (98-107) mmol/L Carbon Dioxide (21.0-32.0) mmol/L BUN (7.0-18.0) mg/dL Creatinine (0.8-1.3) mg/dL Est Cr Clr Drug Dosing mL/min Estimated GFR (MDRD) ml/min Glucose (74-106) mg/dL POC Glucose 81 89 81 (60-110) mg/dL Calcium (8.5-10.1) mg/dL 08/24/18 08/24/18 Range/Units 05:05 05:05 WBC 5.07 (4.0-11.0) K/uL RBC 3.89 L (4.50-5.90) M/uL Hgb 13.0 (13.0-17.0) g/dL Hct 37.6 L (38.0-50.0) % MCV 96.7 (80.0-98.0) fL MCH 33.4 H (27.0-32.0) pg MCHC 34.6 (31.0-37.0) g/dL RDW Std Deviation 45.3 (28.0-62.0) fl RDW Coeff of Gricelda 13 (11.0-15.0) % Plt Count 172 (150-400) K/uL MPV 9.10 (7.40-12.00) fL Neut % (Auto) 57.6 (48.0-80.0) % Lymph % (Auto) 28.2 (16.0-40.0) % [place] % (Auto) 11.0 (0.0-15.0) % Eos % (Auto) 2.8 (0.0-7.0) % Baso % (Auto) 0.4 (0.0-1.5) % Neut # (Auto) 2.9 (1.4-5.7) K/uL Lymph # (Auto) 1.4 (0.6-2.4) K/uL [place] # (Auto) 0.6 (0.0-0.8) K/uL Eos # (Auto) 0.1 (0.0-0.7) K/uL Baso # (Auto) 0.0 (0.0-0.1) K/uL Nucleated RBC % 0.0 /100WBC Nucleated RBCs # 0 K/uL Sodium 143 (136-148) mmol/L Potassium 4.3 (3.5-5.1) mmol/L Chloride 106 (98-107) mmol/L Carbon Dioxide 29.0 (21.0-32.0) mmol/L BUN 21 H (7.0-18.0) mg/dL Creatinine 0.9 (0.8-1.3) mg/dL Est Cr Clr Drug Dosing 77.68 mL/min Estimated GFR (MDRD) > 60.0 ml/min Glucose 82 (74-106) mg/dL POC Glucose (60-110) mg/dL Calcium 8.7 (8.5-10.1) mg/dL Med Orders - Current: Current Medications Dextrose/Sodium Chloride (Dextrose 5%-1/2 Ns) 1,000 mls @ 100 mls/hr IV ASDIRECTED [facility] Last Admin: 08/24/18 06:08 Dose: 100 mls/hr Insulin Aspart (Novolog) 0 unit SUBCUT Q6H [facility]; Protocol Last Admin: 08/24/18 07:36 Dose: Not Given Morphine Sulfate (Morphine) 3 mg IVPUSH Q3H PRN PRN Reason: Pain Ondansetron HCl (Zofran) 4 mg IVPUSH Q4H PRN PRN Reason: Nausea Sodium Chloride (Saline Flush) 10 ml FLUSH ASDIRECTED PRN PRN Reason: Keep Vein Open Last Admin: 08/21/18 21:58 Dose: 10 ml Sodium Chloride (Saline Flush) 2.5 ml FLUSH ASDIRECTED PRN PRN Reason: Keep Vein Open Last Admin: 08/21/18 21:58 Dose: 2.5 ml Discontinued Medications Sodium Chloride (Normal Saline) 1,000 mls @ 999 mls/hr IV STAT ONE Stop: 08/21/18 22:36 Last Admin: 08/21/18 21:50 Dose: 999 mls/hr Sodium Chloride (Normal Saline) Confirm Administered Dose 20 mls @ as directed .ROUTE .STK-MED ONE Stop: 08/21/18 21:42 Last Admin: 08/21/18 21:55 Dose: 20 mls/hr Lactated Ringer's (Ringers, Lactated) 1,000 mls @ 125 mls/hr IV ASDIRECTED [facility] Last Admin: 08/24/18 03:13 Dose: 125 mls/hr Iopamidol (Isovue-370 (76%)) 100 ml IVPUSH ONETIME ONE Stop: 08/21/18 22:34 Last Admin: 08/21/18 22:39 Dose: 100 ml Morphine Sulfate (Morphine) 2 mg IVPUSH ONETIME ONE Stop: 08/21/18 21:37 Last Admin: 08/21/18 21:57 Dose: 2 mg Ondansetron HCl (Zofran) 4 mg IVPUSH ONETIME ONE Stop: 08/21/18 21:37 Last Admin: 08/21/18 21:56 Dose: 4 mg Pantoprazole Sodium (Protonix Iv) 80 mg IVPUSH .BOLUS ONE Stop: 08/21/18 21:37 Last Admin: 08/21/18 21:55 Dose: 80 mg - Exam Quality Assessment: DVT Prophylaxis. No: Skin Breakdown General: Alert, Oriented, Cooperative, No Acute Distress HEENT: Pupils Equal, Pupils Reactive. No: Scleral Icterus Neck: Supple Lungs: Clear to Auscultation, Normal Respiratory Effort Cardiovascular: Regular Rate, Regular Rhythm, No Murmurs. No: Tachycardia GI/Abdominal Exam: Soft, Non-Tender, No Distention, Abnormal Bowel Sounds ( hypoactive, no high pitched sounds). No: Guarding, Rigid, Rebound, Mass (Male) Exam: No Hernia Back Exam: Normal Inspection, Full Range of Motion Extremities: Normal Inspection, Normal Range of Motion, Non-Tender, No Pedal Edema Skin: Warm, Dry, Intact Neurological: No New Focal Deficit, Normal Gait Psy/Mental Status: Alert, Normal Affect, Normal Mood Consult PN Assessment/Plan Procedures: Procedures ASSAY OF FOLIC ACID SERUM (02/01/18) BLOOD CULTURE FOR BACTERIA (02/23/15) BLOOD TRANSFUSION SERVICE (02/01/16) BLOOD TYPING SEROLOGIC ABO (02/01/16) BLOOD TYPING SEROLOGIC RH(D) (02/01/16) CARDIAC REHAB/MONITOR (09/26/16) CHEST X-RAY 2VW FRONTAL&LATL (10/12/14) COLONOSCOPY AND BIOPSY (02/21/16) COMPATIBILITY TEST ANTIGLOB (02/01/16) COMPATIBILITY TEST INCUBATE (02/01/16) COMPATIBILITY TEST SPIN (02/01/16) COMPLETE CBC AUTOMATED (08/13/17) COMPLETE CBC W/AUTO DIFF WBC (02/01/18) COMPREHEN METABOLIC PANEL (12/31/16) EGD BIOPSY SINGLE/MULTIPLE (02/21/16) ELECTROCARDIOGRAM TRACING (09/22/17) EMERGENCY DEPT VISIT (12/02/16) EXTREMITY STUDY (08/04/14) GLUCOSE BLOOD TEST (02/21/16) GLYCOSYLATED HEMOGLOBIN TEST (12/31/16) HEMATOCRIT (04/22/16) HEMOGLOBIN (04/22/16) HYDRATE IV INFUSION ADD-ON (02/23/15) INSERT TEMP BLADDER CATH (11/29/16) IRON BINDING TEST (12/31/16) LIPID PANEL (12/31/16) METABOLIC PANEL TOTAL CA (02/01/16) MICROBE SUSCEPTIBLE JOSIAH (02/01/18) OFFICE/OUTPATIENT VISIT EST (02/09/18) OFFICE/OUTPATIENT VISIT EST (10/12/14) OFFICE/OUTPATIENT VISIT NEW (02/06/16) OFFICE/OUTPATIENT VISIT NEW (08/03/14) PPSV23 VACC 2 YRS+ SUBQ/IM (10/12/14) PROTHROMBIN TIME (07/15/16) PT EVALUATION (10/23/14) RBC ANTIBODY SCREEN (02/01/16) RMVL DEVITAL TIS 20 CM/< (08/14/14) ROUTINE VENIPUNCTURE (02/01/18) THER/PROPH/DIAG IV INF INIT (10/09/15) TTE W/DOPPLER COMPLETE (10/16/14) URINALYSIS AUTO W/SCOPE (02/09/18) URINE BACTERIA CULTURE (02/01/18) URINE CULTURE/COLONY COUNT (02/01/18) US EXAM ABDO BACK WALL SINGH (02/12/18) US URINE CAPACITY MEASURE (11/29/16) VITAMIN B-12 (12/31/16) WOUND(S) CARE NON-SELECTIVE (08/14/14) (1) Small bowel obstruction SNOMED Code(s): 614384793 Code(s): K56.609 - UNSP INTESTNL OBST, UNSP TO PARTIAL VERSUS COMPLETE OBST Priority: Medium Current Visit: Yes Problem List Initiated/Reviewed/Updated: Yes Plan: Patient is essentially unchanged. Bowel sounds are hypoactive. Still has significant air fluid levels in small bowel. Exam is more suggestive of an ileus than an SBO. Will do gastrografin enteroclysis today and see if contrast reaches the cecum. Have already discussed potential surgical options--open laparotomy is available here but not a laparoscopic approach. He has had open heart surgery in [place] and their restrike hammer operator is there.
--- NOTE | 2018-08-24 09:53 | PCM.PN ---
<Priscilla Wilson M - Last Filed: 08/24/18 10:04> - General Info Date of Service: 08/24/18 Admission Dx/Problem (Free Text): SBO Subjective Update: Having some lower abdominal pain this morning along with low back pain. Not passing gas this morning, some bloated feelings. No chest pain or SOB. No other concerns. Up ambulating often in the hallways. Functional Status: Reports: Pain Controlled, Ambulating, Urinating - Review of Systems General: Reports: No Symptoms. Denies: Fever, Weakness HEENT: Reports: No Symptoms. Denies: Headaches, Sore Throat, Visual Changes Pulmonary: Reports: No Symptoms. Denies: Shortness of Breath Cardiovascular: Reports: No Symptoms. Denies: Chest Pain Gastrointestinal: Reports: Abdominal Pain (lower abdomen, just a discomfort). Denies: Flatus, Nausea, Vomiting Genitourinary: Reports: No Symptoms. Denies: Dysuria, Frequency, Burning Musculoskeletal: Reports: No Symptoms Skin: Reports: No Symptoms Neurological: Reports: No Symptoms Psychiatric: Reports: No Symptoms - Patient Data Vitals - Most Recent: Last Vital Signs Temp 98.9 F 08/24/18 08:00 Pulse 69 08/24/18 08:00 Resp 16 08/24/18 08:00 BP 147/78 H 08/24/18 08:00 Pulse Ox 96 08/24/18 08:00 Weight - Most Recent: 100.9 kg I&O - Last 24 Hours: Intake & Output 08/23/18 08/24/18 08/24/18 22:59 06:59 14:59 Intake Total 1460 1140 Output Total 545 300 Balance 915 840 Lab Results Last 24 Hours: Laboratory Results - last 24 hr 08/23/18 08/23/18 08/24/18 Range/Units 11:37 19:53 00:09 WBC (4.0-11.0) K/uL RBC (4.50-5.90) M/uL Hgb (13.0-17.0) g/dL Hct (38.0-50.0) % MCV (80.0-98.0) fL MCH (27.0-32.0) pg MCHC (31.0-37.0) g/dL RDW Std Deviation (28.0-62.0) fl RDW Coeff of Gricelda (11.0-15.0) % Plt Count (150-400) K/uL MPV (7.40-12.00) fL Neut % (Auto) (48.0-80.0) % Lymph % (Auto) (16.0-40.0) % Dane % (Auto) (0.0-15.0) % Eos % (Auto) (0.0-7.0) % Baso % (Auto) (0.0-1.5) % Neut # (Auto) (1.4-5.7) K/uL Lymph # (Auto) (0.6-2.4) K/uL Dane # (Auto) (0.0-0.8) K/uL Eos # (Auto) (0.0-0.7) K/uL Baso # (Auto) (0.0-0.1) K/uL Nucleated RBC % /100WBC Nucleated RBCs # K/uL Sodium (136-148) mmol/L Potassium (3.5-5.1) mmol/L Chloride (98-107) mmol/L Carbon Dioxide (21.0-32.0) mmol/L BUN (7.0-18.0) mg/dL Creatinine (0.8-1.3) mg/dL Est Cr Clr Drug Dosing mL/min Estimated GFR (MDRD) ml/min Glucose (74-106) mg/dL POC Glucose 81 89 81 (60-110) mg/dL Calcium (8.5-10.1) mg/dL 08/24/18 08/24/18 Range/Units 05:05 05:05 WBC 5.07 (4.0-11.0) K/uL RBC 3.89 L (4.50-5.90) M/uL Hgb 13.0 (13.0-17.0) g/dL Hct 37.6 L (38.0-50.0) % MCV 96.7 (80.0-98.0) fL MCH 33.4 H (27.0-32.0) pg MCHC 34.6 (31.0-37.0) g/dL RDW Std Deviation 45.3 (28.0-62.0) fl RDW Coeff of Gricelda 13 (11.0-15.0) % Plt Count 172 (150-400) K/uL MPV 9.10 (7.40-12.00) fL Neut % (Auto) 57.6 (48.0-80.0) % Lymph % (Auto) 28.2 (16.0-40.0) % Dane % (Auto) 11.0 (0.0-15.0) % Eos % (Auto) 2.8 (0.0-7.0) % Baso % (Auto) 0.4 (0.0-1.5) % Neut # (Auto) 2.9 (1.4-5.7) K/uL Lymph # (Auto) 1.4 (0.6-2.4) K/uL Dane # (Auto) 0.6 (0.0-0.8) K/uL Eos # (Auto) 0.1 (0.0-0.7) K/uL Baso # (Auto) 0.0 (0.0-0.1) K/uL Nucleated RBC % 0.0 /100WBC Nucleated RBCs # 0 K/uL Sodium 143 (136-148) mmol/L Potassium 4.3 (3.5-5.1) mmol/L Chloride 106 (98-107) mmol/L Carbon Dioxide 29.0 (21.0-32.0) mmol/L BUN 21 H (7.0-18.0) mg/dL Creatinine 0.9 (0.8-1.3) mg/dL Est Cr Clr Drug Dosing 77.68 mL/min Estimated GFR (MDRD) > 60.0 ml/min Glucose 82 (74-106) mg/dL POC Glucose (60-110) mg/dL Calcium 8.7 (8.5-10.1) mg/dL Med Orders - Current: Current Medications Dextrose/Sodium Chloride (Dextrose 5%-1/2 Ns) 1,000 mls @ 100 mls/hr IV ASDIRECTED [facility] Last Admin: 08/24/18 06:08 Dose: 100 mls/hr Insulin Aspart (Novolog) 0 unit SUBCUT Q6H [facility]; Protocol Last Admin: 08/24/18 07:36 Dose: Not Given Morphine Sulfate (Morphine) 3 mg IVPUSH Q3H PRN PRN Reason: Pain Ondansetron HCl (Zofran) 4 mg IVPUSH Q4H PRN PRN Reason: Nausea Sodium Chloride (Saline Flush) 10 ml FLUSH ASDIRECTED PRN PRN Reason: Keep Vein Open Last Admin: 08/21/18 21:58 Dose: 10 ml Sodium Chloride (Saline Flush) 2.5 ml FLUSH ASDIRECTED PRN PRN Reason: Keep Vein Open Last Admin: 08/21/18 21:58 Dose: 2.5 ml Discontinued Medications Sodium Chloride (Normal Saline) 1,000 mls @ 999 mls/hr IV STAT ONE Stop: 08/21/18 22:36 Last Admin: 08/21/18 21:50 Dose: 999 mls/hr Sodium Chloride (Normal Saline) Confirm Administered Dose 20 mls @ as directed .ROUTE .STK-MED ONE Stop: 08/21/18 21:42 Last Admin: 08/21/18 21:55 Dose: 20 mls/hr Lactated Ringer's (Ringers, Lactated) 1,000 mls @ 125 mls/hr IV ASDIRECTED [facility] Last Admin: 08/24/18 03:13 Dose: 125 mls/hr Iopamidol (Isovue-370 (76%)) 100 ml IVPUSH ONETIME ONE Stop: 08/21/18 22:34 Last Admin: 08/21/18 22:39 Dose: 100 ml Morphine Sulfate (Morphine) 2 mg IVPUSH ONETIME ONE Stop: 08/21/18 21:37 Last Admin: 08/21/18 21:57 Dose: 2 mg Ondansetron HCl (Zofran) 4 mg IVPUSH ONETIME ONE Stop: 08/21/18 21:37 Last Admin: 08/21/18 21:56 Dose: 4 mg Pantoprazole Sodium (Protonix Iv) 80 mg IVPUSH .BOLUS ONE Stop: 08/21/18 21:37 Last Admin: 08/21/18 21:55 Dose: 80 mg - Exam General: Alert, Oriented, Cooperative, No Acute Distress Lungs: Normal Respiratory Effort, Wheezing (mild upper lobe wheezing) Cardiovascular: Regular Rate, Regular Rhythm, No Murmurs GI/Abdominal Exam: Soft, Distended, Tender (Mid abdomen discomfort on palpation) . No: Normal Bowel Sounds (hypoactive, mild tympany noted.), Rigid, Rebound Extremities: Normal Inspection, Normal Range of Motion, Non-Tender, No Pedal Edema Neurological: No New Focal Deficit Psy/Mental Status: Alert, Normal Affect, Normal Mood - Problem List & Annotations (1) Small bowel obstruction SNOMED Code(s): 588200389 Code(s): K56.609 - UNSP INTESTNL OBST, UNSP TO PARTIAL VERSUS COMPLETE OBST Status: Acute Priority: Medium Current Visit: Yes (2) Nausea & vomiting SNOMED Code(s): 52568365 Code(s): R11.2 - NAUSEA WITH VOMITING, UNSPECIFIED Status: Acute Current Visit: Yes (3) Abdominal pain SNOMED Code(s): 30003950 Code(s): R10.9 - UNSPECIFIED ABDOMINAL PAIN Status: Acute Current Visit: Yes (4) CAD (coronary artery disease) SNOMED Code(s): 17048883 Code(s): I25.10 - ATHSCL HEART DISEASE OF [place] CORONARY ARTERY W/O ANG PCTRS Status: Chronic Current Visit: Yes (5) Hx of CABG SNOMED Code(s): 781844691, 912970544 Code(s): Z95.1 - PRESENCE OF AORTOCORONARY BYPASS GRAFT Status: Chronic Current Visit: Yes (6) HTN (hypertension) SNOMED Code(s): 13491501 Code(s): I10 - ESSENTIAL (PRIMARY) HYPERTENSION Status: Chronic Current Visit: Yes Qualifiers: Hypertension type: essential hypertension Qualified Code(s): I10 - Essential (primary) hypertension (7) DM type 2 (diabetes mellitus, type 2) SNOMED Code(s): 70354312 Code(s): E11.9 - TYPE 2 DIABETES MELLITUS WITHOUT COMPLICATIONS Status: Chronic Current Visit: Yes - Problem List Review Problem List Initiated/Reviewed/Updated: Yes - My Orders Last 24 Hours: My Active Orders 08/24/18 08:10 Small Bowel w Enteroclysis [CR] Urgent 08/24/18 09:17 NG [Gastrointestinal Tube Mgmt] [RC] ASDIRECTED NG [Nasogastric Orogastric Tube Insertion] [OM.PC] Routine 08/24/18 09:18 Chest 1V Frontal [CR] Routine - Plan Plan:: 78 yo male admitted for small bowel obstruction. 1. SBO: Xray repeated this morning, continued distention of small bowel. No flatus. Discussed case with Dr Reed and Dr Rosado, who is consulted. Will place NG today and obtain small bowel follow through with gastrograffin. We will continue IV fluids and bowel rest this morning. 2. DM TYpe 2: Monitoring BS every 6 hours while NPO, BS 80s. LR stopped and placed on D 5 05/19 NS 100 mls. Continue to monitor blood sugars. Holding PO meds. 3. HTN: Stable, holding BP meds. Conitnue to monitor. VTE prophylaxis: SCDs, ambulating hallways multiple times a day. Dispo: 1-3 days pending SB follow through results and improvements <Thong Reed - Last Filed: 08/24/18 17:31> - General Info Admission Dx/Problem (Free Text): I have seen and examined the patient independently of Priscilla Wilson CNP. I have discussed the case with her. I have reviewed and agreed with the plan of treatment as outlined for this patient by her. Please see orders. We will await the results of the Gastrografin study. - Patient Data Vitals - Most Recent: Last Vital Signs Temp 36.0 C 08/24/18 16:00 Pulse 77 08/24/18 16:00 Resp 22 H 08/24/18 16:00 BP 180/90 H 08/24/18 16:00 Pulse Ox 95 08/24/18 16:00 I&O - Last 24 Hours: Intake & Output 08/24/18 08/24/18 08/24/18 06:59 14:59 22:59 Intake Total 1140 Output Total 300 Balance 840 Lab Results Last 24 Hours: Laboratory Results - last 24 hr 08/23/18 08/24/18 08/24/18 Range/Units 19:53 00:09 05:05 WBC 5.07 (4.0-11.0) K/uL RBC 3.89 L (4.50-5.90) M/uL Hgb 13.0 (13.0-17.0) g/dL Hct 37.6 L (38.0-50.0) % MCV 96.7 (80.0-98.0) fL MCH 33.4 H (27.0-32.0) pg MCHC 34.6 (31.0-37.0) g/dL RDW Std Deviation 45.3 (28.0-62.0) fl RDW Coeff of Gricelda 13 (11.0-15.0) % Plt Count 172 (150-400) K/uL MPV 9.10 (7.40-12.00) fL Neut % (Auto) 57.6 (48.0-80.0) % Lymph % (Auto) 28.2 (16.0-40.0) % Dane % (Auto) 11.0 (0.0-15.0) % Eos % (Auto) 2.8 (0.0-7.0) % Baso % (Auto) 0.4 (0.0-1.5) % Neut # (Auto) 2.9 (1.4-5.7) K/uL Lymph # (Auto) 1.4 (0.6-2.4) K/uL Dane # (Auto) 0.6 (0.0-0.8) K/uL Eos # (Auto) 0.1 (0.0-0.7) K/uL Baso # (Auto) 0.0 (0.0-0.1) K/uL Nucleated RBC % 0.0 /100WBC Nucleated RBCs # 0 K/uL Sodium (136-148) mmol/L Potassium (3.5-5.1) mmol/L Chloride (98-107) mmol/L Carbon Dioxide (21.0-32.0) mmol/L BUN (7.0-18.0) mg/dL Creatinine (0.8-1.3) mg/dL Est Cr Clr Drug Dosing mL/min Estimated GFR (MDRD) ml/min Glucose (74-106) mg/dL POC Glucose 89 81 (60-110) mg/dL Calcium (8.5-10.1) mg/dL 08/24/18 08/24/18 08/24/18 Range/Units 05:05 05:35 12:13 WBC (4.0-11.0) K/uL RBC (4.50-5.90) M/uL Hgb (13.0-17.0) g/dL Hct (38.0-50.0) % MCV (80.0-98.0) fL MCH (27.0-32.0) pg MCHC (31.0-37.0) g/dL RDW Std Deviation (28.0-62.0) fl RDW Coeff of Gricelda (11.0-15.0) % Plt Count (150-400) K/uL MPV (7.40-12.00) fL Neut % (Auto) (48.0-80.0) % Lymph % (Auto) (16.0-40.0) % Dane % (Auto) (0.0-15.0) % Eos % (Auto) (0.0-7.0) % Baso % (Auto) (0.0-1.5) % Neut # (Auto) (1.4-5.7) K/uL Lymph # (Auto) (0.6-2.4) K/uL Dane # (Auto) (0.0-0.8) K/uL Eos # (Auto) (0.0-0.7) K/uL Baso # (Auto) (0.0-0.1) K/uL Nucleated RBC % /100WBC Nucleated RBCs # K/uL Sodium 143 (136-148) mmol/L Potassium 4.3 (3.5-5.1) mmol/L Chloride 106 (98-107) mmol/L Carbon Dioxide 29.0 (21.0-32.0) mmol/L BUN 21 H (7.0-18.0) mg/dL Creatinine 0.9 (0.8-1.3) mg/dL Est Cr Clr Drug Dosing 77.68 mL/min Estimated GFR (MDRD) > 60.0 ml/min Glucose 82 (74-106) mg/dL POC Glucose 72 111 H (60-110) mg/dL Calcium 8.7 (8.5-10.1) mg/dL 08/24/18 Range/Units 16:05 WBC (4.0-11.0) K/uL RBC (4.50-5.90) M/uL Hgb (13.0-17.0) g/dL Hct (38.0-50.0) % MCV (80.0-98.0) fL MCH (27.0-32.0) pg MCHC (31.0-37.0) g/dL RDW Std Deviation (28.0-62.0) fl RDW Coeff of Gricelda (11.0-15.0) % Plt Count (150-400) K/uL MPV (7.40-12.00) fL Neut % (Auto) (48.0-80.0) % Lymph % (Auto) (16.0-40.0) % Dane % (Auto) (0.0-15.0) % Eos % (Auto) (0.0-7.0) % Baso % (Auto) (0.0-1.5) % Neut # (Auto) (1.4-5.7) K/uL Lymph # (Auto) (0.6-2.4) K/uL Dane # (Auto) (0.0-0.8) K/uL Eos # (Auto) (0.0-0.7) K/uL Baso # (Auto) (0.0-0.1) K/uL Nucleated RBC % /100WBC Nucleated RBCs # K/uL Sodium (136-148) mmol/L Potassium (3.5-5.1) mmol/L Chloride (98-107) mmol/L Carbon Dioxide (21.0-32.0) mmol/L BUN (7.0-18.0) mg/dL Creatinine (0.8-1.3) mg/dL Est Cr Clr Drug Dosing mL/min Estimated GFR (MDRD) ml/min Glucose (74-106) mg/dL POC Glucose 133 H (60-110) mg/dL Calcium (8.5-10.1) mg/dL Med Orders - Current: Current Medications Dextrose/Sodium Chloride (Dextrose 5%-1/2 Ns) 1,000 mls @ 100 mls/hr IV ASDIRECTED [facility] Last Admin: 08/24/18 16:01 Dose: 100 mls/hr Insulin Aspart (Novolog) 0 unit SUBCUT Q6H [facility]; Protocol Last Admin: 08/24/18 16:06 Dose: Not Given Morphine Sulfate (Morphine) 3 mg IVPUSH Q3H PRN PRN Reason: Pain Ondansetron HCl (Zofran) 4 mg IVPUSH Q4H PRN PRN Reason: Nausea Sodium Chloride (Saline Flush) 10 ml FLUSH ASDIRECTED PRN PRN Reason: Keep Vein Open Last Admin: 08/21/18 21:58 Dose: 10 ml Sodium Chloride (Saline Flush) 2.5 ml FLUSH ASDIRECTED PRN PRN Reason: Keep Vein Open Last Admin: 08/21/18 21:58 Dose: 2.5 ml Discontinued Medications Sodium Chloride (Normal Saline) 1,000 mls @ 999 mls/hr IV STAT ONE Stop: 08/21/18 22:36 Last Admin: 08/21/18 21:50 Dose: 999 mls/hr Sodium Chloride (Normal Saline) Confirm Administered Dose 20 mls @ as directed .ROUTE .STK-MED ONE Stop: 08/21/18 21:42 Last Admin: 08/21/18 21:55 Dose: 20 mls/hr Lactated Ringer's (Ringers, Lactated) 1,000 mls @ 125 mls/hr IV ASDIRECTED [facility] Last Admin: 08/24/18 03:13 Dose: 125 mls/hr Iopamidol (Isovue-370 (76%)) 100 ml IVPUSH ONETIME ONE Stop: 08/21/18 22:34 Last Admin: 08/21/18 22:39 Dose: 100 ml Morphine Sulfate (Morphine) 2 mg IVPUSH ONETIME ONE Stop: 08/21/18 21:37 Last Admin: 08/21/18 21:57 Dose: 2 mg Ondansetron HCl (Zofran) 4 mg IVPUSH ONETIME ONE Stop: 08/21/18 21:37 Last Admin: 08/21/18 21:56 Dose: 4 mg Pantoprazole Sodium (Protonix Iv) 80 mg IVPUSH .BOLUS ONE Stop: 08/21/18 21:37 Last Admin: 08/21/18 21:55 Dose: 80 mg - My Orders Last 24 Hours: My Active Orders 08/24/18 06:00 Dextrose 5%-0.45% NaCl [Dextrose 5%-1/2 NS] 1,000 ml IV ASDIRECTED
--- NOTE | 2018-08-24 11:14 | CR ---
EXAMINATION: Portable chest radiograph. HISTORY: NG tube placement. FINDINGS: The trachea is midline. The cardiomediastinal silhouette is within normal limits. Lung bases are grossly clear. The tip of the NG tube is not definitively visualized within the esophagus or stomach. IMPRESSION: The tip of the NG tube is not definitively visualized. Repositioning is recommended.
--- NOTE | 2018-08-24 12:23 | CR ---
EXAMINATION: Portable chest radiograph. HISTORY: NG tube placement. FINDINGS: The trachea is midline. The cardiomediastinal silhouette is within normal limits. Mild left basal atelectasis and/or infiltrate. Median sternotomy wires are noted. The NG tube is noted with tip and side-port within the stomach. Osseous structures appear unremarkable. IMPRESSION: NG tube in good position.
--- NOTE | 2018-08-24 12:23 | CR ---
EXAMINATION: Portable chest radiograph. HISTORY: NG tube placement. FINDINGS: The trachea is midline. The cardiomediastinal silhouette is within normal limits. Mild left basilar atelectasis. No pneumothorax. Median sternotomy wires are noted. The NG tube is noted tip in the midesophagus, this could be advanced at least 18 cm. Osseous structures appear unremarkable. IMPRESSION: Tip of the NG tube is noted within the mid esophagus, this could be advanced.
--- NOTE | 2018-08-24 17:14 | CR ---
EXAMINATION: Small bowel follow-through HISTORY: Obstruction COMPARISON: Same day TECHNIQUE: AP imaging obtained of the abdomen following the administration of Gastrografin through an NG tube. FINDINGS: Again noted are moderately dilated loops of small bowel. No definite filling defect or stricture is identified. The transit time Gastrografin is mildly delayed at 4 hours with contrast noted within the colon. Visualized osseous structures appear osteopenic. No abnormal calcifications. IMPRESSION: 1. Again noted is dilated small bowel, with mildly delayed transit time. This likely represents a partial bowel obstruction versus severe ileus.
[2018-08-24] MEDS: Losartan 50 MG Tab PO SCH (21:33)
[2018-08-25] MEDS: Insulin Aspart 100 Units/ML 3 ML Pen SUBCUT SCH ×2 (02:00→07:16)
[2018-08-25 05:56] LABS: CHLORIDE,CL 107 mmol/L (98-107); SODIUM,NA 143 mmol/L (136-148)
[2018-08-25] MEDS: Losartan 50 MG Tab PO SCH (08:52)
[2018-08-25] MEDS ORDERED: Aspirin 81 MG Tab.Chew PO SCH (09:00)
--- NOTE | 2018-08-25 09:56 | PCM.PN ---
<Priscilla Wilson M - Last Filed: 08/25/18 09:52> - General Info Date of Service: 08/25/18 Admission Dx/Problem (Free Text): SBO Subjective Update: Doing well this morning, no abdominal pain. Having BMs after SB follow through and contrast yesterday. Had BM this morning. Eager to eat. No chest pain or SOB. Functional Status: Reports: Ambulating, Urinating - Review of Systems General: Reports: No Symptoms. Denies: Fever, Weakness, Fatigue Pulmonary: Reports: No Symptoms. Denies: Shortness of Breath Cardiovascular: Reports: No Symptoms. Denies: Chest Pain Gastrointestinal: Reports: No Symptoms, Flatus. Denies: Abdominal Pain, Nausea , Vomiting Genitourinary: Reports: No Symptoms. Denies: Dysuria, Frequency, Burning Musculoskeletal: Reports: No Symptoms Skin: Reports: No Symptoms Neurological: Reports: No Symptoms Psychiatric: Reports: No Symptoms - Patient Data Vitals - Most Recent: Last Vital Signs Temp 96.8 F 08/25/18 08:00 Pulse 72 08/25/18 08:00 Resp 18 08/25/18 08:00 BP 137/72 08/25/18 08:52 Pulse Ox 95 08/25/18 08:00 Weight - Most Recent: 100.9 kg I&O - Last 24 Hours: Intake & Output 08/24/18 08/25/18 08/25/18 22:59 06:59 14:59 Intake Total 1214 Output Total 800 Balance 1214 -800 Lab Results Last 24 Hours: Laboratory Results - last 24 hr 08/24/18 08/24/18 08/24/18 Range/Units 05:35 12:13 16:05 WBC (4.0-11.0) K/uL RBC (4.50-5.90) M/uL Hgb (13.0-17.0) g/dL Hct (38.0-50.0) % MCV (80.0-98.0) fL MCH (27.0-32.0) pg MCHC (31.0-37.0) g/dL RDW Std Deviation (28.0-62.0) fl RDW Coeff of [place] (11.0-15.0) % Plt Count (150-400) K/uL MPV (7.40-12.00) fL Neut % (Auto) (48.0-80.0) % Lymph % (Auto) (16.0-40.0) % [place] % (Auto) (0.0-15.0) % Eos % (Auto) (0.0-7.0) % Baso % (Auto) (0.0-1.5) % Neut # (Auto) (1.4-5.7) K/uL Lymph # (Auto) (0.6-2.4) K/uL [place] # (Auto) (0.0-0.8) K/uL Eos # (Auto) (0.0-0.7) K/uL Baso # (Auto) (0.0-0.1) K/uL Nucleated RBC % /100WBC Nucleated RBCs # K/uL Sodium (136-148) mmol/L Potassium (3.5-5.1) mmol/L Chloride (98-107) mmol/L Carbon Dioxide (21.0-32.0) mmol/L BUN (7.0-18.0) mg/dL Creatinine (0.8-1.3) mg/dL Est Cr Clr Drug Dosing mL/min Estimated GFR (MDRD) ml/min Glucose (74-106) mg/dL POC Glucose 72 111 H 133 H (60-110) mg/dL Calcium (8.5-10.1) mg/dL 08/24/18 08/25/18 08/25/18 Range/Units 18:09 00:04 04:58 WBC 5.68 (4.0-11.0) K/uL RBC 3.87 L (4.50-5.90) M/uL Hgb 12.6 L (13.0-17.0) g/dL Hct 36.9 L (38.0-50.0) % MCV 95.3 (80.0-98.0) fL MCH 32.6 H (27.0-32.0) pg MCHC 34.1 (31.0-37.0) g/dL RDW Std Deviation 44.8 (28.0-62.0) fl RDW Coeff of [place] 13 (11.0-15.0) % Plt Count 196 (150-400) K/uL MPV 9.20 (7.40-12.00) fL Neut % (Auto) 64.4 (48.0-80.0) % Lymph % (Auto) 20.1 (16.0-40.0) % [place] % (Auto) 13.0 (0.0-15.0) % Eos % (Auto) 2.3 (0.0-7.0) % Baso % (Auto) 0.2 (0.0-1.5) % Neut # (Auto) 3.7 (1.4-5.7) K/uL Lymph # (Auto) 1.1 (0.6-2.4) K/uL [place] # (Auto) 0.7 (0.0-0.8) K/uL Eos # (Auto) 0.1 (0.0-0.7) K/uL Baso # (Auto) 0.0 (0.0-0.1) K/uL Nucleated RBC % 0.0 /100WBC Nucleated RBCs # 0 K/uL Sodium (136-148) mmol/L Potassium (3.5-5.1) mmol/L Chloride (98-107) mmol/L Carbon Dioxide (21.0-32.0) mmol/L BUN (7.0-18.0) mg/dL Creatinine (0.8-1.3) mg/dL Est Cr Clr Drug Dosing mL/min Estimated GFR (MDRD) ml/min Glucose (74-106) mg/dL POC Glucose 155 H 136 H (60-110) mg/dL Calcium (8.5-10.1) mg/dL 08/25/18 08/25/18 Range/Units 04:58 06:01 WBC (4.0-11.0) K/uL RBC (4.50-5.90) M/uL Hgb (13.0-17.0) g/dL Hct (38.0-50.0) % MCV (80.0-98.0) fL MCH (27.0-32.0) pg MCHC (31.0-37.0) g/dL RDW Std Deviation (28.0-62.0) fl RDW Coeff of [place] (11.0-15.0) % Plt Count (150-400) K/uL MPV (7.40-12.00) fL Neut % (Auto) (48.0-80.0) % Lymph % (Auto) (16.0-40.0) % [place] % (Auto) (0.0-15.0) % Eos % (Auto) (0.0-7.0) % Baso % (Auto) (0.0-1.5) % Neut # (Auto) (1.4-5.7) K/uL Lymph # (Auto) (0.6-2.4) K/uL [place] # (Auto) (0.0-0.8) K/uL Eos # (Auto) (0.0-0.7) K/uL Baso # (Auto) (0.0-0.1) K/uL Nucleated RBC % /100WBC Nucleated RBCs # K/uL Sodium 143 (136-148) mmol/L Potassium 3.5 (3.5-5.1) mmol/L Chloride 107 (98-107) mmol/L Carbon Dioxide 27.0 (21.0-32.0) mmol/L BUN 15 (7.0-18.0) mg/dL Creatinine 0.9 (0.8-1.3) mg/dL Est Cr Clr Drug Dosing 77.68 mL/min Estimated GFR (MDRD) > 60.0 ml/min Glucose 141 H (74-106) mg/dL POC Glucose 126 H (60-110) mg/dL Calcium 8.3 L (8.5-10.1) mg/dL Med Orders - Current: Current Medications Aspirin (Aspirin) 81 mg PO DAILY [facility] Last Admin: 08/25/18 09:37 Dose: 81 mg Insulin Aspart (Novolog) 0 unit SUBCUT TIDAC [facility]; Protocol Losartan Potassium (Cozaar) 50 mg PO DAILY [facility] Last Admin: 08/25/18 08:52 Dose: 50 mg Morphine Sulfate (Morphine) 3 mg IVPUSH Q3H PRN PRN Reason: Pain Ondansetron HCl (Zofran) 4 mg IVPUSH Q4H PRN PRN Reason: Nausea Sodium Chloride (Saline Flush) 10 ml FLUSH ASDIRECTED PRN PRN Reason: Keep Vein Open Last Admin: 08/21/18 21:58 Dose: 10 ml Sodium Chloride (Saline Flush) 2.5 ml FLUSH ASDIRECTED PRN PRN Reason: Keep Vein Open Last Admin: 08/21/18 21:58 Dose: 2.5 ml Discontinued Medications Sodium Chloride (Normal Saline) 1,000 mls @ 999 mls/hr IV STAT ONE Stop: 08/21/18 22:36 Last Admin: 08/21/18 21:50 Dose: 999 mls/hr Sodium Chloride (Normal Saline) Confirm Administered Dose 20 mls @ as directed .ROUTE .STK-MED ONE Stop: 08/21/18 21:42 Last Admin: 08/21/18 21:55 Dose: 20 mls/hr Lactated Ringer's (Ringers, Lactated) 1,000 mls @ 125 mls/hr IV ASDIRECTED [facility] Last Admin: 08/24/18 03:13 Dose: 125 mls/hr Dextrose/Sodium Chloride (Dextrose 5%-1/2 Ns) 1,000 mls @ 100 mls/hr IV ASDIRECTED [facility] Last Admin: 08/24/18 16:01 Dose: 100 mls/hr Insulin Aspart (Novolog) 0 unit SUBCUT Q6H [facility]; Protocol Last Admin: 08/25/18 07:16 Dose: Not Given Iopamidol (Isovue-370 (76%)) 100 ml IVPUSH ONETIME ONE Stop: 08/21/18 22:34 Last Admin: 08/21/18 22:39 Dose: 100 ml Morphine Sulfate (Morphine) 2 mg IVPUSH ONETIME ONE Stop: 08/21/18 21:37 Last Admin: 08/21/18 21:57 Dose: 2 mg Ondansetron HCl (Zofran) 4 mg IVPUSH ONETIME ONE Stop: 08/21/18 21:37 Last Admin: 08/21/18 21:56 Dose: 4 mg Pantoprazole Sodium (Protonix Iv) 80 mg IVPUSH .BOLUS ONE Stop: 08/21/18 21:37 Last Admin: 08/21/18 21:55 Dose: 80 mg - Exam General: Alert, Oriented, Cooperative, No Acute Distress Lungs: Clear to Auscultation, Normal Respiratory Effort Cardiovascular: Regular Rate, Regular Rhythm GI/Abdominal Exam: Normal Bowel Sounds, Soft, Non-Tender, No Distention, No Mass Extremities: Normal Inspection, Normal Range of Motion, Non-Tender, No Pedal Edema, Normal Capillary Refill Neurological: No New Focal Deficit Psy/Mental Status: Alert, Normal Affect, Normal Mood - Problem List & Annotations (1) Small bowel obstruction SNOMED Code(s): 526166172 Code(s): K56.609 - UNSP INTESTNL OBST, UNSP TO PARTIAL VERSUS COMPLETE OBST Status: Acute Priority: Medium Current Visit: Yes (2) Nausea & vomiting SNOMED Code(s): 95875426 Code(s): R11.2 - NAUSEA WITH VOMITING, UNSPECIFIED Status: Acute Current Visit: Yes (3) Abdominal pain SNOMED Code(s): 48443877 Code(s): R10.9 - UNSPECIFIED ABDOMINAL PAIN Status: Acute Current Visit: Yes (4) CAD (coronary artery disease) SNOMED Code(s): 08156410 Code(s): I25.10 - ATHSCL HEART DISEASE OF [place] CORONARY ARTERY W/O ANG PCTRS Status: Chronic Current Visit: Yes (5) Hx of CABG SNOMED Code(s): 749651055, 195048337 Code(s): Z95.1 - PRESENCE OF AORTOCORONARY BYPASS GRAFT Status: Chronic Current Visit: Yes (6) HTN (hypertension) SNOMED Code(s): 49980737 Code(s): I10 - ESSENTIAL (PRIMARY) HYPERTENSION Status: Chronic Current Visit: Yes Qualifiers: Hypertension type: essential hypertension Qualified Code(s): I10 - Essential (primary) hypertension (7) DM type 2 (diabetes mellitus, type 2) SNOMED Code(s): 24607660 Code(s): E11.9 - TYPE 2 DIABETES MELLITUS WITHOUT COMPLICATIONS Status: Chronic Current Visit: Yes - Problem List Review Problem List Initiated/Reviewed/Updated: Yes - My Orders Last 24 Hours: My Active Orders 08/24/18 09:17 NG [Nasogastric Orogastric Tube Insertion] [OM.PC] Routine 08/25/18 09:00 Aspirin 81 mg PO DAILY 08/25/18 11:30 Insulin Aspart [NovoLOG] See Protocol SUBCUT TIDAC 08/25/18 Breakfast Clear Liquid Diet [DIET] 08/25/18 Lunch Advance Diet Instructions [DIET] 08/26/18 05:11 BMP [BASIC METABOLIC PANEL,BMP] [CHEM] AM CBC WITH AUTO DIFF [HEME] AM 08/27/18 05:11 BMP [BASIC METABOLIC PANEL,BMP] [CHEM] AM CBC WITH AUTO DIFF [HEME] AM - Plan Plan:: 78 yo male admitted for small bowel obstruction. 1. SBO: Small bowel follow through with gastrografin completed yesterday. Started passing gas around 1-2 pm yesterday with multiple large BMs yesterday evening. He continues to have BMs. Flat and upright Xray obtained this morning, contrast noted throughout. Will await read. Will start CL diet and monitor. 2. DM TYpe 2: Continue to monitor blood sugars. Novolog SSI. Will monitor TIDac now that CL will be started 3. HTN: Slightly elevated, restart Losartan. VTE prophylaxis: SCDs, ambulating hallways multiple times a day. Dispo: Pending abd xray and if tolerates diet, possibly DC later today. <Thong Reed - Last Filed: 08/25/18 12:35> - General Info Admission Dx/Problem (Free Text): I have seen and examined the patient independently of Priscilla Wilson CNP. I have discussed the case with her. I have reviewed and agreed with the plan of treatment as outlined for this patient by her. Please see orders. - Patient Data Vitals - Most Recent: Last Vital Signs Temp 36.3 C 08/25/18 11:00 Pulse 71 08/25/18 11:00 Resp 16 08/25/18 11:00 BP 146/78 H 08/25/18 11:00 Pulse Ox 98 08/25/18 11:00 I&O - Last 24 Hours: Intake & Output 08/24/18 08/25/18 08/25/18 22:59 06:59 14:59 Intake Total 1214 Output Total 800 Balance 1214 -800 Lab Results Last 24 Hours: Laboratory Results - last 24 hr 08/24/18 08/24/18 08/25/18 Range/Units 16:05 18:09 00:04 WBC (4.0-11.0) K/uL RBC (4.50-5.90) M/uL Hgb (13.0-17.0) g/dL Hct (38.0-50.0) % MCV (80.0-98.0) fL MCH (27.0-32.0) pg MCHC (31.0-37.0) g/dL RDW Std Deviation (28.0-62.0) fl RDW Coeff of [place] (11.0-15.0) % Plt Count (150-400) K/uL MPV (7.40-12.00) fL Neut % (Auto) (48.0-80.0) % Lymph % (Auto) (16.0-40.0) % [place] % (Auto) (0.0-15.0) % Eos % (Auto) (0.0-7.0) % Baso % (Auto) (0.0-1.5) % Neut # (Auto) (1.4-5.7) K/uL Lymph # (Auto) (0.6-2.4) K/uL [place] # (Auto) (0.0-0.8) K/uL Eos # (Auto) (0.0-0.7) K/uL Baso # (Auto) (0.0-0.1) K/uL Nucleated RBC % /100WBC Nucleated RBCs # K/uL Sodium (136-148) mmol/L Potassium (3.5-5.1) mmol/L Chloride (98-107) mmol/L Carbon Dioxide (21.0-32.0) mmol/L BUN (7.0-18.0) mg/dL Creatinine (0.8-1.3) mg/dL Est Cr Clr Drug Dosing mL/min Estimated GFR (MDRD) ml/min Glucose (74-106) mg/dL POC Glucose 133 H 155 H 136 H (60-110) mg/dL Calcium (8.5-10.1) mg/dL 08/25/18 08/25/18 08/25/18 Range/Units 04:58 04:58 06:01 WBC 5.68 (4.0-11.0) K/uL RBC 3.87 L (4.50-5.90) M/uL Hgb 12.6 L (13.0-17.0) g/dL Hct 36.9 L (38.0-50.0) % MCV 95.3 (80.0-98.0) fL MCH 32.6 H (27.0-32.0) pg MCHC 34.1 (31.0-37.0) g/dL RDW Std Deviation 44.8 (28.0-62.0) fl RDW Coeff of [place] 13 (11.0-15.0) % Plt Count 196 (150-400) K/uL MPV 9.20 (7.40-12.00) fL Neut % (Auto) 64.4 (48.0-80.0) % Lymph % (Auto) 20.1 (16.0-40.0) % [place] % (Auto) 13.0 (0.0-15.0) % Eos % (Auto) 2.3 (0.0-7.0) % Baso % (Auto) 0.2 (0.0-1.5) % Neut # (Auto) 3.7 (1.4-5.7) K/uL Lymph # (Auto) 1.1 (0.6-2.4) K/uL [place] # (Auto) 0.7 (0.0-0.8) K/uL Eos # (Auto) 0.1 (0.0-0.7) K/uL Baso # (Auto) 0.0 (0.0-0.1) K/uL Nucleated RBC % 0.0 /100WBC Nucleated RBCs # 0 K/uL Sodium 143 (136-148) mmol/L Potassium 3.5 (3.5-5.1) mmol/L Chloride 107 (98-107) mmol/L Carbon Dioxide 27.0 (21.0-32.0) mmol/L BUN 15 (7.0-18.0) mg/dL Creatinine 0.9 (0.8-1.3) mg/dL Est Cr Clr Drug Dosing 77.68 mL/min Estimated GFR (MDRD) > 60.0 ml/min Glucose 141 H (74-106) mg/dL POC Glucose 126 H (60-110) mg/dL Calcium 8.3 L (8.5-10.1) mg/dL 08/25/18 Range/Units 11:21 WBC (4.0-11.0) K/uL RBC (4.50-5.90) M/uL Hgb (13.0-17.0) g/dL Hct (38.0-50.0) % MCV (80.0-98.0) fL MCH (27.0-32.0) pg MCHC (31.0-37.0) g/dL RDW Std Deviation (28.0-62.0) fl RDW Coeff of [place] (11.0-15.0) % Plt Count (150-400) K/uL MPV (7.40-12.00) fL Neut % (Auto) (48.0-80.0) % Lymph % (Auto) (16.0-40.0) % [place] % (Auto) (0.0-15.0) % Eos % (Auto) (0.0-7.0) % Baso % (Auto) (0.0-1.5) % Neut # (Auto) (1.4-5.7) K/uL Lymph # (Auto) (0.6-2.4) K/uL [place] # (Auto) (0.0-0.8) K/uL Eos # (Auto) (0.0-0.7) K/uL Baso # (Auto) (0.0-0.1) K/uL Nucleated RBC % /100WBC Nucleated RBCs # K/uL Sodium (136-148) mmol/L Potassium (3.5-5.1) mmol/L Chloride (98-107) mmol/L Carbon Dioxide (21.0-32.0) mmol/L BUN (7.0-18.0) mg/dL Creatinine (0.8-1.3) mg/dL Est Cr Clr Drug Dosing mL/min Estimated GFR (MDRD) ml/min Glucose (74-106) mg/dL POC Glucose 120 H (60-110) mg/dL Calcium (8.5-10.1) mg/dL Med Orders - Current: Current Medications Aspirin (Aspirin) 81 mg PO DAILY [facility] Last Admin: 08/25/18 09:37 Dose: 81 mg Insulin Aspart (Novolog) 0 unit SUBCUT TIDAC [facility]; Protocol Losartan Potassium (Cozaar) 50 mg PO DAILY [facility] Last Admin: 08/25/18 08:52 Dose: 50 mg Morphine Sulfate (Morphine) 3 mg IVPUSH Q3H PRN PRN Reason: Pain Ondansetron HCl (Zofran) 4 mg IVPUSH Q4H PRN PRN Reason: Nausea Sodium Chloride (Saline Flush) 10 ml FLUSH ASDIRECTED PRN PRN Reason: Keep Vein Open Last Admin: 08/21/18 21:58 Dose: 10 ml Sodium Chloride (Saline Flush) 2.5 ml FLUSH ASDIRECTED PRN PRN Reason: Keep Vein Open Last Admin: 08/21/18 21:58 Dose: 2.5 ml Discontinued Medications Sodium Chloride (Normal Saline) 1,000 mls @ 999 mls/hr IV STAT ONE Stop: 08/21/18 22:36 Last Admin: 08/21/18 21:50 Dose: 999 mls/hr Sodium Chloride (Normal Saline) Confirm Administered Dose 20 mls @ as directed .ROUTE .STK-MED ONE Stop: 08/21/18 21:42 Last Admin: 08/21/18 21:55 Dose: 20 mls/hr Lactated Ringer's (Ringers, Lactated) 1,000 mls @ 125 mls/hr IV ASDIRECTED [facility] Last Admin: 08/24/18 03:13 Dose: 125 mls/hr Dextrose/Sodium Chloride (Dextrose 5%-1/2 Ns) 1,000 mls @ 100 mls/hr IV ASDIRECTED [facility] Last Admin: 08/24/18 16:01 Dose: 100 mls/hr Insulin Aspart (Novolog) 0 unit SUBCUT Q6H [facility]; Protocol Last Admin: 08/25/18 07:16 Dose: Not Given Iopamidol (Isovue-370 (76%)) 100 ml IVPUSH ONETIME ONE Stop: 08/21/18 22:34 Last Admin: 08/21/18 22:39 Dose: 100 ml Morphine Sulfate (Morphine) 2 mg IVPUSH ONETIME ONE Stop: 08/21/18 21:37 Last Admin: 08/21/18 21:57 Dose: 2 mg Ondansetron HCl (Zofran) 4 mg IVPUSH ONETIME ONE Stop: 08/21/18 21:37 Last Admin: 08/21/18 21:56 Dose: 4 mg Pantoprazole Sodium (Protonix Iv) 80 mg IVPUSH .BOLUS ONE Stop: 08/21/18 21:37 Last Admin: 08/21/18 21:55 Dose: 80 mg - My Orders Last 24 Hours: My Active Orders 08/24/18 21:30 Losartan [Cozaar] 50 mg PO DAILY
[2018-08-25 11:03] VITALS: BP 146/78
[2018-08-25] MEDS ORDERED: Insulin Aspart 100 Units/ML 3 ML Pen SUBCUT SCH (11:30)
--- NOTE | 2018-08-25 11:48 | PCM.CONSN ---
- General Info Date of Service: 08/25/18 Admission Dx/Problem (Free Text): SBO vs ileus Subjective Update: Patient is feeling much better. After the gastrografin study, he has had multiple BMs. Currently rates pain 0-1. No N/V, fever or chills. Hungry and wants to eat. Functional Status: Reports: Pain Controlled, Tolerating Diet (clear liquids) - Review of Systems General: Denies: Fever, Weakness, Fatigue, Malaise HEENT: Reports: No Symptoms Pulmonary: Denies: Shortness of Breath, Pleuritic Chest Pain Cardiovascular: Denies: Chest Pain Gastrointestinal: Reports: Diarrhea, Flatus. Denies: Abdominal Pain, Constipation, Hematochezia, Melena, Nausea, Vomiting Genitourinary: Denies: Dysuria, Frequency, Burning Musculoskeletal: Reports: No Symptoms Skin: Reports: No Symptoms Neurological: Reports: No Symptoms Psychiatric: Reports: No Symptoms - Patient Data Vitals - Most Recent: Last Vital Signs Temp 97.3 F 08/25/18 11:00 Pulse 71 08/25/18 11:00 Resp 16 08/25/18 11:00 BP 146/78 H 08/25/18 11:00 Pulse Ox 98 08/25/18 11:00 Weight - Most Recent: 222 lb 7.143 oz I&O - Last 24 Hours: Intake & Output 08/24/18 08/25/18 08/25/18 19:59 03:59 11:59 Intake Total 1214 Output Total 800 Balance 1214 -800 Lab Results Last 24 Hours: Laboratory Results - last 24 hr 08/24/18 08/24/18 08/24/18 Range/Units 05:35 12:13 16:05 WBC (4.0-11.0) K/uL RBC (4.50-5.90) M/uL Hgb (13.0-17.0) g/dL Hct (38.0-50.0) % MCV (80.0-98.0) fL MCH (27.0-32.0) pg MCHC (31.0-37.0) g/dL RDW Std Deviation (28.0-62.0) fl RDW Coeff of [place] (11.0-15.0) % Plt Count (150-400) K/uL MPV (7.40-12.00) fL Neut % (Auto) (48.0-80.0) % Lymph % (Auto) (16.0-40.0) % [place] % (Auto) (0.0-15.0) % Eos % (Auto) (0.0-7.0) % Baso % (Auto) (0.0-1.5) % Neut # (Auto) (1.4-5.7) K/uL Lymph # (Auto) (0.6-2.4) K/uL [place] # (Auto) (0.0-0.8) K/uL Eos # (Auto) (0.0-0.7) K/uL Baso # (Auto) (0.0-0.1) K/uL Nucleated RBC % /100WBC Nucleated RBCs # K/uL Sodium (136-148) mmol/L Potassium (3.5-5.1) mmol/L Chloride (98-107) mmol/L Carbon Dioxide (21.0-32.0) mmol/L BUN (7.0-18.0) mg/dL Creatinine (0.8-1.3) mg/dL Est Cr Clr Drug Dosing mL/min Estimated GFR (MDRD) ml/min Glucose (74-106) mg/dL POC Glucose 72 111 H 133 H (60-110) mg/dL Calcium (8.5-10.1) mg/dL 08/24/18 08/25/18 08/25/18 Range/Units 18:09 00:04 04:58 WBC 5.68 (4.0-11.0) K/uL RBC 3.87 L (4.50-5.90) M/uL Hgb 12.6 L (13.0-17.0) g/dL Hct 36.9 L (38.0-50.0) % MCV 95.3 (80.0-98.0) fL MCH 32.6 H (27.0-32.0) pg MCHC 34.1 (31.0-37.0) g/dL RDW Std Deviation 44.8 (28.0-62.0) fl RDW Coeff of [place] 13 (11.0-15.0) % Plt Count 196 (150-400) K/uL MPV 9.20 (7.40-12.00) fL Neut % (Auto) 64.4 (48.0-80.0) % Lymph % (Auto) 20.1 (16.0-40.0) % [place] % (Auto) 13.0 (0.0-15.0) % Eos % (Auto) 2.3 (0.0-7.0) % Baso % (Auto) 0.2 (0.0-1.5) % Neut # (Auto) 3.7 (1.4-5.7) K/uL Lymph # (Auto) 1.1 (0.6-2.4) K/uL [place] # (Auto) 0.7 (0.0-0.8) K/uL Eos # (Auto) 0.1 (0.0-0.7) K/uL Baso # (Auto) 0.0 (0.0-0.1) K/uL Nucleated RBC % 0.0 /100WBC Nucleated RBCs # 0 K/uL Sodium (136-148) mmol/L Potassium (3.5-5.1) mmol/L Chloride (98-107) mmol/L Carbon Dioxide (21.0-32.0) mmol/L BUN (7.0-18.0) mg/dL Creatinine (0.8-1.3) mg/dL Est Cr Clr Drug Dosing mL/min Estimated GFR (MDRD) ml/min Glucose (74-106) mg/dL POC Glucose 155 H 136 H (60-110) mg/dL Calcium (8.5-10.1) mg/dL 08/25/18 08/25/18 08/25/18 Range/Units 04:58 06:01 11:21 WBC (4.0-11.0) K/uL RBC (4.50-5.90) M/uL Hgb (13.0-17.0) g/dL Hct (38.0-50.0) % MCV (80.0-98.0) fL MCH (27.0-32.0) pg MCHC (31.0-37.0) g/dL RDW Std Deviation (28.0-62.0) fl RDW Coeff of [place] (11.0-15.0) % Plt Count (150-400) K/uL MPV (7.40-12.00) fL Neut % (Auto) (48.0-80.0) % Lymph % (Auto) (16.0-40.0) % [place] % (Auto) (0.0-15.0) % Eos % (Auto) (0.0-7.0) % Baso % (Auto) (0.0-1.5) % Neut # (Auto) (1.4-5.7) K/uL Lymph # (Auto) (0.6-2.4) K/uL [place] # (Auto) (0.0-0.8) K/uL Eos # (Auto) (0.0-0.7) K/uL Baso # (Auto) (0.0-0.1) K/uL Nucleated RBC % /100WBC Nucleated RBCs # K/uL Sodium 143 (136-148) mmol/L Potassium 3.5 (3.5-5.1) mmol/L Chloride 107 (98-107) mmol/L Carbon Dioxide 27.0 (21.0-32.0) mmol/L BUN 15 (7.0-18.0) mg/dL Creatinine 0.9 (0.8-1.3) mg/dL Est Cr Clr Drug Dosing 77.68 mL/min Estimated GFR (MDRD) > 60.0 ml/min Glucose 141 H (74-106) mg/dL POC Glucose 126 H 120 H (60-110) mg/dL Calcium 8.3 L (8.5-10.1) mg/dL Med Orders - Current: Current Medications Aspirin (Aspirin) 81 mg PO DAILY [facility] Last Admin: 08/25/18 09:37 Dose: 81 mg Insulin Aspart (Novolog) 0 unit SUBCUT TIDAC [facility]; Protocol Losartan Potassium (Cozaar) 50 mg PO DAILY [facility] Last Admin: 08/25/18 08:52 Dose: 50 mg Morphine Sulfate (Morphine) 3 mg IVPUSH Q3H PRN PRN Reason: Pain Ondansetron HCl (Zofran) 4 mg IVPUSH Q4H PRN PRN Reason: Nausea Sodium Chloride (Saline Flush) 10 ml FLUSH ASDIRECTED PRN PRN Reason: Keep Vein Open Last Admin: 08/21/18 21:58 Dose: 10 ml Sodium Chloride (Saline Flush) 2.5 ml FLUSH ASDIRECTED PRN PRN Reason: Keep Vein Open Last Admin: 08/21/18 21:58 Dose: 2.5 ml Discontinued Medications Sodium Chloride (Normal Saline) 1,000 mls @ 999 mls/hr IV STAT ONE Stop: 08/21/18 22:36 Last Admin: 08/21/18 21:50 Dose: 999 mls/hr Sodium Chloride (Normal Saline) Confirm Administered Dose 20 mls @ as directed .ROUTE .STK-MED ONE Stop: 08/21/18 21:42 Last Admin: 08/21/18 21:55 Dose: 20 mls/hr Lactated Ringer's (Ringers, Lactated) 1,000 mls @ 125 mls/hr IV ASDIRECTED [facility]OHAN Last Admin: 08/24/18 03:13 Dose: 125 mls/hr Dextrose/Sodium Chloride (Dextrose 5%-1/2 Ns) 1,000 mls @ 100 mls/hr IV ASDIRECTED [facility] Last Admin: 08/24/18 16:01 Dose: 100 mls/hr Insulin Aspart (Novolog) 0 unit SUBCUT Q6H [facility]; Protocol Last Admin: 08/25/18 07:16 Dose: Not Given Iopamidol (Isovue-370 (76%)) 100 ml IVPUSH ONETIME ONE Stop: 08/21/18 22:34 Last Admin: 08/21/18 22:39 Dose: 100 ml Morphine Sulfate (Morphine) 2 mg IVPUSH ONETIME ONE Stop: 08/21/18 21:37 Last Admin: 08/21/18 21:57 Dose: 2 mg Ondansetron HCl (Zofran) 4 mg IVPUSH ONETIME ONE Stop: 08/21/18 21:37 Last Admin: 08/21/18 21:56 Dose: 4 mg Pantoprazole Sodium (Protonix Iv) 80 mg IVPUSH .BOLUS ONE Stop: 08/21/18 21:37 Last Admin: 08/21/18 21:55 Dose: 80 mg - Exam General: Alert, Oriented, Cooperative, No Acute Distress HEENT: Pupils Equal, Pupils Reactive. No: Scleral Icterus Neck: Supple Lungs: Clear to Auscultation, Normal Respiratory Effort Cardiovascular: Regular Rate, Regular Rhythm GI/Abdominal Exam: Normal Bowel Sounds, Soft, Non-Tender, No Distention, No Mass (Male) Exam: Hernia (right inguinal hernia is reducible) Back Exam: Normal Inspection Extremities: Normal Inspection, Normal Range of Motion, Non-Tender, No Pedal Edema Skin: Warm, Dry, Intact Neurological: No New Focal Deficit Psy/Mental Status: Alert, Normal Affect, Normal Mood Consult PN Assessment/Plan Procedures: Procedures ASSAY OF FOLIC ACID SERUM (02/01/18) BLOOD CULTURE FOR BACTERIA (02/23/15) BLOOD TRANSFUSION SERVICE (02/01/16) BLOOD TYPING SEROLOGIC ABO (02/01/16) BLOOD TYPING SEROLOGIC RH(D) (02/01/16) CARDIAC REHAB/MONITOR (09/26/16) CHEST X-RAY 2VW FRONTAL&LATL (10/12/14) COLONOSCOPY AND BIOPSY (02/21/16) COMPATIBILITY TEST ANTIGLOB (02/01/16) COMPATIBILITY TEST INCUBATE (02/01/16) COMPATIBILITY TEST SPIN (02/01/16) COMPLETE CBC AUTOMATED (08/13/17) COMPLETE CBC W/AUTO DIFF WBC (02/01/18) COMPREHEN METABOLIC PANEL (12/31/16) EGD BIOPSY SINGLE/MULTIPLE (02/21/16) ELECTROCARDIOGRAM TRACING (09/22/17) EMERGENCY DEPT VISIT (12/02/16) EXTREMITY STUDY (08/04/14) GLUCOSE BLOOD TEST (02/21/16) GLYCOSYLATED HEMOGLOBIN TEST (12/31/16) HEMATOCRIT (04/22/16) HEMOGLOBIN (04/22/16) HYDRATE IV INFUSION ADD-ON (02/23/15) INSERT TEMP BLADDER CATH (11/29/16) IRON BINDING TEST (12/31/16) LIPID PANEL (12/31/16) METABOLIC PANEL TOTAL CA (02/01/16) MICROBE SUSCEPTIBLE JOSIAH (02/01/18) OFFICE/OUTPATIENT VISIT EST (02/09/18) OFFICE/OUTPATIENT VISIT EST (10/12/14) OFFICE/OUTPATIENT VISIT NEW (02/06/16) OFFICE/OUTPATIENT VISIT NEW (08/03/14) PPSV23 VACC 2 YRS+ SUBQ/IM (10/12/14) PROTHROMBIN TIME (07/15/16) PT EVALUATION (10/23/14) RBC ANTIBODY SCREEN (02/01/16) RMVL DEVITAL TIS 20 CM/< (08/14/14) ROUTINE VENIPUNCTURE (02/01/18) THER/PROPH/DIAG IV INF INIT (02/23/15) TTE W/DOPPLER COMPLETE (10/16/14) URINALYSIS AUTO W/SCOPE (02/09/18) URINE BACTERIA CULTURE (02/01/18) URINE CULTURE/COLONY COUNT (02/01/18) US EXAM ABDO BACK WALL SINGH (02/12/18) US URINE CAPACITY MEASURE (11/29/16) VITAMIN B-12 (12/31/16) WOUND(S) CARE NON-SELECTIVE (08/14/14) (1) Small bowel obstruction SNOMED Code(s): 614729146 Code(s): K56.609 - UNSP INTESTNL OBST, UNSP TO PARTIAL VERSUS COMPLETE OBST Priority: Medium Current Visit: Yes Problem List Initiated/Reviewed/Updated: Yes My Orders Last 24 Hours: My Active Orders 08/24/18 19:53 NG [Nasogastric Orogastric Tube Removal] [OM.PC] Routine 08/25/18 07:51 Abdomen 2V AP Flat Upright [CR] Routine Plan: Gastrografin is outlining the large intestine. There are still some dilated loops of small bowel. It appears the ileus or SBO has resolved. Patient is okay to start liquids and advance the diet as he tolerates. Surgical intervention will not be necessary.
--- NOTE | 2018-08-25 13:56 | CR ---
EXAMINATION: Abdomen HISTORY: Follow-up COMPARISON: 08/24/2018 TECHNIQUE: AP and upright views FINDINGS: There are a few persistent dilated loops of small bowel noted measuring up to 6 cm. The oral contrast is noted within the colon and rectum. No free air diaphragm. Median sternotomy wires are noted. Degenerative changes within the lower lumbar spine and hips. IMPRESSION: 1. Persistent dilated loops of small bowel. Likely representing a partial obstruction versus ileus. 2. The oral contrast has passed into the colon and rectum digital contrast within the small bowel.
--- NOTE | 2018-08-25 14:10 | PCM.DCSUM1 ---
<Priscilla Wilson M - Last Filed: 08/25/18 14:10> Discharge Summary - Hospital Course Brief History: 78 yo male with pmh of CAD, s/p CABG, HTN, DM who presents with five day history of nausea and vomiting, abdominal distentions and pain. He reports feeling very bloated. He was evaluated in the ED with CT scan which reports high grade obstruction in the distal small bowel. Patient reported feeling better once being seen in the ED with no nasuea or abdominal pain noted. He reports that he has been passing gas and having regular stools. He denies any fevers, or blood in his stool. Diagnosis: Stroke: No - Discharge Data Discharge Date: 08/25/18 Discharge Disposition: Home, Self-Care 01 Condition: Stable - Discharge Diagnosis/Problem(s) (1) Small bowel obstruction SNOMED Code(s): 251183378 ICD Code: K56.609 - UNSP INTESTNL OBST, UNSP TO PARTIAL VERSUS COMPLETE OBST Status: Acute Priority: Medium (2) Nausea & vomiting SNOMED Code(s): 77547931 ICD Code: R11.2 - NAUSEA WITH VOMITING, UNSPECIFIED Status: Acute (3) Abdominal pain SNOMED Code(s): 29989114 ICD Code: R10.9 - UNSPECIFIED ABDOMINAL PAIN Status: Acute (4) CAD (coronary artery disease) SNOMED Code(s): 07729778 ICD Code: I25.10 - ATHSCL HEART DISEASE OF [place] CORONARY ARTERY W/O ANG PCTRS Status: Chronic (5) Hx of CABG SNOMED Code(s): 297130643, 305824822 ICD Code: Z95.1 - PRESENCE OF AORTOCORONARY BYPASS GRAFT Status: Chronic (6) HTN (hypertension) SNOMED Code(s): 28917940 ICD Code: I10 - ESSENTIAL (PRIMARY) HYPERTENSION Status: Chronic Qualifiers: Hypertension type: essential hypertension Qualified Code(s): I10 - Essential (primary) hypertension (7) DM type 2 (diabetes mellitus, type 2) SNOMED Code(s): 92555228 ICD Code: E11.9 - TYPE 2 DIABETES MELLITUS WITHOUT COMPLICATIONS Status: Chronic - Patient Summary/Data Consults: Consultations 08/21/18 23:53 Consult to Physician [CONS] Stat - Patient Instructions Diet: GI Soft/Low Residue/Low Fiber Activity: As Tolerated Showering/Bathing: September Shower Notify Provider of: Fever, Increased Pain, Nausea and/or Vomiting - Discharge Plan *PRESCRIPTION DRUG MONITORING PROGRAM REVIEWED*: Not Applicable *COPY OF PRESCRIPTION DRUG MONITORING REPORT IN PATIENT TUTU: Not Applicable Home Medications: Home Meds Ascorbic Acid [Vitamin C] 500 mg PO DAILY 02/18/16 [History] Calcium Carb & Citrate/Vit D3 [Calcium + D3 ER Tablet] 600 mg PO DAILY 02/18/16 [History] Fish Oil/[place]-3 Fatty Acids [Fish Oil 1,000 MG] 1 tab PO DAILY 02/18/16 [ History] Glucosamine/D3/Boswellia Staci [Osteo Bi-Flex Caplet] 1 tab PO DAILY 02/18/16 [ History] Multivitamin [Multivitamins] 1 tab PO DAILY 02/18/16 [History] Simvastatin [Zocor] 20 mg PO BEDTIME 02/18/16 [History] metFORMIN HCl [Metformin ER Gastric] 1,000 mg PO DAILY 02/18/16 [History] Aspirin 81 mg PO DAILY 11/30/16 [History] Melatonin 10 mg PO BEDTIME 11/30/16 [History] Losartan [Cozaar] 1 tab PO DAILY 08/21/18 [History] Sertraline [Zoloft] 1 tab PO DAILY 08/21/18 [History] Patient Handouts: Small Bowel Obstruction, [id number], Abdominal Pain, Adult , [id number] Referrals: Danny Castro MD [Physician] - PCP,None [Primary Care Provider] - 09/02/18 2:45 pm - Discharge Summary/Plan Comment DC Time >30 min.: No Discharge Summary/Plan Comment: Discharge Diagnoses: SBO HTN CAD DM Type 2 Hx CABG Bill was admitted and treated for small bowel obstruction with bowel rest. Dr Rowe, General surgery, was consulted. Conservative therapy continue. Yesterday, 08/24, he continued to have tympany noted with some distension and KUB showed continued dilated loops of small bowel. Dr Rowe recommended small bowel follow through with gastrograffin. NG was placed and gastrograffin administered for the study. By 1-2 pm he was passing flatus and then around 4 pm started having large loose BMs. Today he is doing well. He is no longer having back or abdominal pain. He is very hungry and eager to eat and go home. He continues to have BM today with scant flatus. He was started CL diet this morning, then had soft diet for lunch. No increased pain, nausea or vomiting. Abdominal xray today reveals some continue dilated loops of bowel, but contrast is noted throughout colon. I spoke with Dr Rowe, who saw patient today. He is ok with him discharging home on soft diet. He is to follow up with PCP in 1 week and it was recommended to have R inguinal hernia fixed. I discussed this with Keenan and his . They likely will go to [place] for this, but they would discuss it. I explained Dr Castro, PCP, would be able to arrange referral for them when they decided. Keenan was encouraged to return to ED or clinic if concerns should arise or symptoms reappear. - General Info Date of Service: 08/25/18 Admission Dx/Problem (Free Text: SBO Subjective Update: Doing well after eating cottage cheese and salad for lunch. No abdominal pain or nausea. Eager to go home. Functional Status: Reports: Pain Controlled, Tolerating Diet, Ambulating, Urinating - Review of Systems General: Reports: No Symptoms. Denies: Fever, Weakness, Fatigue Pulmonary: Reports: No Symptoms. Denies: Shortness of Breath Cardiovascular: Reports: No Symptoms. Denies: Chest Pain Gastrointestinal: Reports: No Symptoms, Flatus. Denies: Abdominal Pain, Nausea , Vomiting Genitourinary: Reports: No Symptoms. Denies: Dysuria, Frequency, Burning Musculoskeletal: Reports: No Symptoms Skin: Reports: No Symptoms Neurological: Reports: No Symptoms Psychiatric: Reports: No Symptoms - Patient Data Vitals - Most Recent: Last Vital Signs Temp 97.3 F 08/25/18 11:00 Pulse 71 08/25/18 11:00 Resp 16 08/25/18 11:00 BP 146/78 H 08/25/18 11:00 Pulse Ox 98 08/25/18 11:00 Weight - Most Recent: 100.9 kg I&O - Last 24 hours: Intake & Output 08/24/18 08/25/18 08/25/18 22:59 06:59 14:59 Intake Total 1214 Output Total 800 Balance 1214 -800 Lab Results - Last 24 hrs: Laboratory Results - last 24 hr 08/24/18 08/24/18 08/25/18 Range/Units 16:05 18:09 00:04 WBC (4.0-11.0) K/uL RBC (4.50-5.90) M/uL Hgb (13.0-17.0) g/dL Hct (38.0-50.0) % MCV (80.0-98.0) fL MCH (27.0-32.0) pg MCHC (31.0-37.0) g/dL RDW Std Deviation (28.0-62.0) fl RDW Coeff of [place]ric[place] (11.0-15.0) % Plt Count (150-400) K/uL MPV (7.40-12.00) fL Neut % (Auto) (48.0-80.0) % Lymph % (Auto) (16.0-40.0) % [place] % (Auto) (0.0-15.0) % Eos % (Auto) (0.0-7.0) % Baso % (Auto) (0.0-1.5) % Neut # (Auto) (1.4-5.7) K/uL Lymph # (Auto) (0.6-2.4) K/uL [place] # (Auto) (0.0-0.8) K/uL Eos # (Auto) (0.0-0.7) K/uL Baso # (Auto) (0.0-0.1) K/uL Nucleated RBC % /100WBC Nucleated RBCs # K/uL Sodium (136-148) mmol/L Potassium (3.5-5.1) mmol/L Chloride (98-107) mmol/L Carbon Dioxide (21.0-32.0) mmol/L BUN (7.0-18.0) mg/dL Creatinine (0.8-1.3) mg/dL Est Cr Clr Drug Dosing mL/min Estimated GFR (MDRD) ml/min Glucose (74-106) mg/dL POC Glucose 133 H 155 H 136 H (60-110) mg/dL Calcium (8.5-10.1) mg/dL 08/25/18 08/25/18 08/25/18 Range/Units 04:58 04:58 06:01 WBC 5.68 (4.0-11.0) K/uL RBC 3.87 L (4.50-5.90) M/uL Hgb 12.6 L (13.0-17.0) g/dL Hct 36.9 L (38.0-50.0) % MCV 95.3 (80.0-98.0) fL MCH 32.6 H (27.0-32.0) pg MCHC 34.1 (31.0-37.0) g/dL RDW Std Deviation 44.8 (28.0-62.0) fl RDW Coeff of [place] 13 (11.0-15.0) % Plt Count 196 (150-400) K/uL MPV 9.20 (7.40-12.00) fL Neut % (Auto) 64.4 (48.0-80.0) % Lymph % (Auto) 20.1 (16.0-40.0) % [place] % (Auto) 13.0 (0.0-15.0) % Eos % (Auto) 2.3 (0.0-7.0) % Baso % (Auto) 0.2 (0.0-1.5) % Neut # (Auto) 3.7 (1.4-5.7) K/uL Lymph # (Auto) 1.1 (0.6-2.4) K/uL [place] # (Auto) 0.7 (0.0-0.8) K/uL Eos # (Auto) 0.1 (0.0-0.7) K/uL Baso # (Auto) 0.0 (0.0-0.1) K/uL Nucleated RBC % 0.0 /100WBC Nucleated RBCs # 0 K/uL Sodium 143 (136-148) mmol/L Potassium 3.5 (3.5-5.1) mmol/L Chloride 107 (98-107) mmol/L Carbon Dioxide 27.0 (21.0-32.0) mmol/L BUN 15 (7.0-18.0) mg/dL Creatinine 0.9 (0.8-1.3) mg/dL Est Cr Clr Drug Dosing 77.68 mL/min Estimated GFR (MDRD) > 60.0 ml/min Glucose 141 H (74-106) mg/dL POC Glucose 126 H (60-110) mg/dL Calcium 8.3 L (8.5-10.1) mg/dL 08/25/18 Range/Units 11:21 WBC (4.0-11.0) K/uL RBC (4.50-5.90) M/uL Hgb (13.0-17.0) g/dL Hct (38.0-50.0) % MCV (80.0-98.0) fL MCH (27.0-32.0) pg MCHC (31.0-37.0) g/dL RDW Std Deviation (28.0-62.0) fl RDW Coeff of [place] (11.0-15.0) % Plt Count (150-400) K/uL MPV (7.40-12.00) fL Neut % (Auto) (48.0-80.0) % Lymph % (Auto) (16.0-40.0) % [place] % (Auto) (0.0-15.0) % Eos % (Auto) (0.0-7.0) % Baso % (Auto) (0.0-1.5) % Neut # (Auto) (1.4-5.7) K/uL Lymph # (Auto) (0.6-2.4) K/uL [place] # (Auto) (0.0-0.8) K/uL Eos # (Auto) (0.0-0.7) K/uL Baso # (Auto) (0.0-0.1) K/uL Nucleated RBC % /100WBC Nucleated RBCs # K/uL Sodium (136-148) mmol/L Potassium (3.5-5.1) mmol/L Chloride (98-107) mmol/L Carbon Dioxide (21.0-32.0) mmol/L BUN (7.0-18.0) mg/dL Creatinine (0.8-1.3) mg/dL Est Cr Clr Drug Dosing mL/min Estimated GFR (MDRD) ml/min Glucose (74-106) mg/dL POC Glucose 120 H (60-110) mg/dL Calcium (8.5-10.1) mg/dL Med Orders - Current: Current Medications Aspirin (Aspirin) 81 mg PO DAILY [facility] Last Admin: 08/25/18 09:37 Dose: 81 mg Insulin Aspart (Novolog) [facility]; Protocol Last Admin: 08/25/18 12:36 Dose: Not Given Losartan Potassium (Cozaar) 50 mg PO DAILY [facility] Last Admin: 08/25/18 08:52 Dose: 50 mg Morphine Sulfate (Morphine) 3 mg IVPUSH Q3H PRN PRN Reason: Pain Ondansetron HCl (Zofran) 4 mg IVPUSH Q4H PRN PRN Reason: Nausea Sodium Chloride (Saline Flush) 10 ml FLUSH ASDIRECTED PRN PRN Reason: Keep Vein Open Last Admin: 08/21/18 21:58 Dose: 10 ml Sodium Chloride (Saline Flush) 2.5 ml FLUSH ASDIRECTED PRN PRN Reason: Keep Vein Open Last Admin: 08/21/18 21:58 Dose: 2.5 ml Discontinued Medications Sodium Chloride (Normal Saline) 1,000 mls @ 999 mls/hr IV STAT ONE Stop: 08/21/18 22:36 Last Admin: 08/21/18 21:50 Dose: 999 mls/hr Sodium Chloride (Normal Saline) Confirm Administered Dose 20 mls @ as directed .ROUTE .STK-MED ONE Stop: 08/21/18 21:42 Last Admin: 08/21/18 21:55 Dose: 20 mls/hr Lactated Ringer's (Ringers, Lactated) 1,000 mls @ 125 mls/hr IV ASDIRECTED [facility] Last Admin: 08/24/18 03:13 Dose: 125 mls/hr Dextrose/Sodium Chloride (Dextrose 5%-1/2 Ns) 1,000 mls @ 100 mls/hr IV ASDIRECTED [facility] Last Admin: 08/24/18 16:01 Dose: 100 mls/hr Insulin Aspart (Novolog) 0 unit SUBCUT Q6H [facility]; Protocol Last Admin: 08/25/18 07:16 Dose: Not Given Iopamidol (Isovue-370 (76%)) 100 ml IVPUSH ONETIME ONE Stop: 08/21/18 22:34 Last Admin: 08/21/18 22:39 Dose: 100 ml Morphine Sulfate (Morphine) 2 mg IVPUSH ONETIME ONE Stop: 08/21/18 21:37 Last Admin: 08/21/18 21:57 Dose: 2 mg Ondansetron HCl (Zofran) 4 mg IVPUSH ONETIME ONE Stop: 08/21/18 21:37 Last Admin: 08/21/18 21:56 Dose: 4 mg Pantoprazole Sodium (Protonix Iv) 80 mg IVPUSH .BOLUS ONE Stop: 08/21/18 21:37 Last Admin: 08/21/18 21:55 Dose: 80 mg - Exam General: Reports: Alert, Oriented, Cooperative Lungs: Reports: Clear to Auscultation, Normal Respiratory Effort Cardiovascular: Reports: Regular Rate, Regular Rhythm GI/Abdominal Exam: Normal Bowel Sounds, Soft, Non-Tender, No Distention Back Exam: Reports: Normal Inspection, Full Range of Motion Extremities: Normal Inspection, Normal Range of Motion, Non-Tender Neurological: Reports: No New Focal Deficit Psy/Mental Status: Reports: Alert, Normal Affect, Normal Mood <Thong eRed - Last Filed: 08/25/18 17:00> Discharge Summary - Hospital Course HPI Initial Comments: I have seen and examined the patient independently of Priscilla Wilson CNP. I have discussed the case with her. I have reviewed and agreed with the plan of treatment as outlined for this patient by her. Please see orders. - Patient Summary/Data Consults: Consultations 08/21/18 23:53 Consult to Physician [CONS] Stat - Patient Data Vitals - Most Recent: Last Vital Signs Temp 36.3 C 08/25/18 11:00 Pulse 71 08/25/18 11:00 Resp 16 08/25/18 11:00 BP 146/78 H 08/25/18 11:00 Pulse Ox 98 08/25/18 11:00 I&O - Last 24 hours: Intake & Output 08/25/18 08/25/18 08/25/18 06:59 14:59 22:59 Intake Total 360 Output Total 800 250 Balance -800 110 Lab Results - Last 24 hrs: Laboratory Results - last 24 hr 08/24/18 08/25/18 08/25/18 Range/Units 18:09 00:04 04:58 WBC 5.68 (4.0-11.0) K/uL RBC 3.87 L (4.50-5.90) M/uL Hgb 12.6 L (13.0-17.0) g/dL Hct 36.9 L (38.0-50.0) % MCV 95.3 (80.0-98.0) fL MCH 32.6 H (27.0-32.0) pg MCHC 34.1 (31.0-37.0) g/dL RDW Std Deviation 44.8 (28.0-62.0) fl RDW Coeff of [place] 13 (11.0-15.0) % Plt Count 196 (150-400) K/uL MPV 9.20 (7.40-12.00) fL Neut % (Auto) 64.4 (48.0-80.0) % Lymph % (Auto) 20.1 (16.0-40.0) % [place] % (Auto) 13.0 (0.0-15.0) % Eos % (Auto) 2.3 (0.0-7.0) % Baso % (Auto) 0.2 (0.0-1.5) % Neut # (Auto) 3.7 (1.4-5.7) K/uL Lymph # (Auto) 1.1 (0.6-2.4) K/uL [place] # (Auto) 0.7 (0.0-0.8) K/uL Eos # (Auto) 0.1 (0.0-0.7) K/uL Baso # (Auto) 0.0 (0.0-0.1) K/uL Nucleated RBC % 0.0 /100WBC Nucleated RBCs # 0 K/uL Sodium (136-148) mmol/L Potassium (3.5-5.1) mmol/L Chloride (98-107) mmol/L Carbon Dioxide (21.0-32.0) mmol/L BUN (7.0-18.0) mg/dL Creatinine (0.8-1.3) mg/dL Est Cr Clr Drug Dosing mL/min Estimated GFR (MDRD) ml/min Glucose (74-106) mg/dL POC Glucose 155 H 136 H (60-110) mg/dL Calcium (8.5-10.1) mg/dL 08/25/18 08/25/18 08/25/18 Range/Units 04:58 06:01 11:21 WBC (4.0-11.0) K/uL RBC (4.50-5.90) M/uL Hgb (13.0-17.0) g/dL Hct (38.0-50.0) % MCV (80.0-98.0) fL MCH (27.0-32.0) pg MCHC (31.0-37.0) g/dL RDW Std Deviation (28.0-62.0) fl RDW Coeff of [place] (11.0-15.0) % Plt Count (150-400) K/uL MPV (7.40-12.00) fL Neut % (Auto) (48.0-80.0) % Lymph % (Auto) (16.0-40.0) % [place] % (Auto) (0.0-15.0) % Eos % (Auto) (0.0-7.0) % Baso % (Auto) (0.0-1.5) % Neut # (Auto) (1.4-5.7) K/uL Lymph # (Auto) (0.6-2.4) K/uL [place] # (Auto) (0.0-0.8) K/uL Eos # (Auto) (0.0-0.7) K/uL Baso # (Auto) (0.0-0.1) K/uL Nucleated RBC % /100WBC Nucleated RBCs # K/uL Sodium 143 (136-148) mmol/L Potassium 3.5 (3.5-5.1) mmol/L Chloride 107 (98-107) mmol/L Carbon Dioxide 27.0 (21.0-32.0) mmol/L BUN 15 (7.0-18.0) mg/dL Creatinine 0.9 (0.8-1.3) mg/dL Est Cr Clr Drug Dosing 77.68 mL/min Estimated GFR (MDRD) > 60.0 ml/min Glucose 141 H (74-106) mg/dL POC Glucose 126 H 120 H (60-110) mg/dL Calcium 8.3 L (8.5-10.1) mg/dL Med Orders - Current: Current Medications Discontinued Medications Aspirin (Aspirin) 81 mg PO DAILY [facility] Last Admin: 08/25/18 09:37 Dose: 81 mg Sodium Chloride (Normal Saline) 1,000 mls @ 999 mls/hr IV STAT ONE Stop: 08/21/18 22:36 Last Admin: 08/21/18 21:50 Dose: 999 mls/hr Sodium Chloride (Normal Saline) Confirm Administered Dose 20 mls @ as directed .ROUTE .STK-MED ONE Stop: 08/21/18 21:42 Last Admin: 08/21/18 21:55 Dose: 20 mls/hr Lactated Ringer's (Ringers, Lactated) 1,000 mls @ 125 mls/hr IV ASDIRECTED [facility] Last Admin: 08/24/18 03:13 Dose: 125 mls/hr Dextrose/Sodium Chloride (Dextrose 5%-1/2 Ns) 1,000 mls @ 100 mls/hr IV ASDIRECTED [facility] Last Admin: 08/24/18 16:01 Dose: 100 mls/hr Insulin Aspart (Novolog) 0 unit SUBCUT Q6H [facility]; Protocol Last Admin: 08/25/18 07:16 Dose: Not Given Insulin Aspart (Novolog) 0 unit SUBCUT TIDAC [facility]; Protocol Last Admin: 08/25/18 12:36 Dose: Not Given Iopamidol (Isovue-370 (76%)) 100 ml IVPUSH ONETIME ONE Stop: 08/21/18 22:34 Last Admin: 08/21/18 22:39 Dose: 100 ml Losartan Potassium (Cozaar) 50 mg PO DAILY [facility] Last Admin: 08/25/18 08:52 Dose: 50 mg Morphine Sulfate (Morphine) 2 mg IVPUSH ONETIME ONE Stop: 08/21/18 21:37 Last Admin: 08/21/18 21:57 Dose: 2 mg Morphine Sulfate (Morphine) 3 mg IVPUSH Q3H PRN PRN Reason: Pain Ondansetron HCl (Zofran) 4 mg IVPUSH ONETIME ONE Stop: 08/21/18 21:37 Last Admin: 08/21/18 21:56 Dose: 4 mg Ondansetron HCl (Zofran) 4 mg IVPUSH Q4H PRN PRN Reason: Nausea Pantoprazole Sodium (Protonix Iv) 80 mg IVPUSH .BOLUS ONE Stop: 08/21/18 21:37 Last Admin: 08/21/18 21:55 Dose: 80 mg Sodium Chloride (Saline Flush) 10 ml FLUSH ASDIRECTED PRN PRN Reason: Keep Vein Open Last Admin: 08/21/18 21:58 Dose: 10 ml Sodium Chloride (Saline Flush) 2.5 ml FLUSH ASDIRECTED PRN PRN Reason: Keep Vein Open Last Admin: 08/21/18 21:58 Dose: 2.5 ml
== END 2018-08-25 14:50 | disposition home or self-care (01) ==
LOC: MW.ED 21:19 → MW.MS 08-22 00:09
PROVIDERS: ADMIT Internal Medicine; ATTEND Internal Medicine
DX: K56.609 Unspecified intestinal obstruction, unspecified as to partial versus complete obstruction (principal); I25.10 Atherosclerotic heart disease of native coronary artery without angina pectoris; I10 Essential (primary) hypertension; Z95.1 Presence of aortocoronary bypass graft; E11.9 Type 2 diabetes mellitus without complications; Z79.84 Long term (current) use of oral hypoglycemic drugs; Z79.82 Long term (current) use of aspirin; Z79.899 Other long term (current) drug therapy; E78.00 Pure hypercholesterolemia, unspecified
CPT/HCPCS: 36415; 71045; 71045-26; 74019; 74019-26; 74177; 74177-26; 74250; 74250-26; 80048; 80053; 81003; 82150; 82962; 83605; 83690; 85025; 86677; 93005; 96361; 96374; 96375; 99284; 99285-25; A9270-GY; C9113; G0378; J2270; J2405; J7040; J7042; J7120; Q9967